=== PATIENT | female | born 1990 | race Caucasian/White ===

== ENCOUNTER 2023-10-26 09:22 | Outpatient (CLI) | payer BC, SELFPAY | END 2023-10-26 09:23 | disposition home or self-care (01) | LOC: NFLDREF 09:23 | PROVIDERS: PCP Registered Nurse; Visit Provider Registered Nurse | DX: Z34.81 Encounter for supervision of other normal pregnancy, first trimester (principal) | CPT/HCPCS: 86787 ==

== ENCOUNTER 2023-12-11 13:49 | Outpatient (CLI) | payer BC, SELFPAY ==
--- NOTE | 2023-12-11 14:00 | CRLHL7_ITS ---
For Patients: As a result of the Century Cures Act, medical imaging exams and procedure reports are released immediately into your electronic medical record. You may view this report before your referring provider. If you have questions, please contact your health care provider. INDICATION: Evaluate anatomy. COMPARISON: none TECHNIQUE: Real time lazaro scale imaging of the fetus was performed as well as color Doppler analysis of the umbilical vessels. FINDINGS: Sonographic imaging demonstrates a single living intrauterine gestation. Fetus demonstrates a regular cardiac rate of 163 beats per minute. Fetus has a variable position. The placenta lies posteriorly without evidence of placenta previa. Placental edge is 3.5 cm from the internal cervical os. Amniotic fluid volume appears normal. Single deepest vertical pocket: 4.4 cm. The cervix is closed and measures 4.2 cm in length. The composite ultrasound gestational age is calculated at 19 weeks 1 day with an estimated sonographic due date of 05/05/2024. The estimated weight is 283 grams which lies at the 62nd %. The following biometric measurements were obtained: Biparietal diameter: 4.4 cm/19 weeks 2 days 63rd% Head circumference: 16.0 cm/18 weeks 6 days 34th% Abdominal circumference: 13.8 cm/19 weeks 2 days 53rd% Femur length: 3.1 cm/19 weeks 3 days 60th% The HC/AC ratio measures: 1.16 range (1.09-1.26) On anatomic survey, there is a normal appearance of the cerebral ventricles, cavum septi pellucidi, cisterna magna and cerebellum. The nose, lips, and facial profile appear normal. The cervical, thoracic and lumbar spine are well visualized and appear normal. There is a normal four-chamber heart view and the left and right ventricular outflow tracts appear normal. The diaphragm and stomach appear normal. The kidneys and bladder also appear normal. There is a normal three-vessel cord and cord insertion site. The four extremities appear normal. IMPRESSION: Normal OB ultrasound exam with concordance of clinical and sonographic dating. No intrinsic abnormalities noted on anatomic survey. Dictated by Lenin Thompson MD @ 12/13/2023 7:06:56 AM (Electronically Signed)
== END 2023-12-11 13:50 | disposition home or self-care (01) ==
LOC: US 13:50
PROVIDERS: Visit Provider Advanced Practice Midwife
DX: Z34.92 Encounter for supervision of normal pregnancy, unspecified, second trimester (principal); Z3A.19 19 weeks gestation of pregnancy
CPT/HCPCS: 76805

== ENCOUNTER 2024-02-07 11:27 | Outpatient (CLI) | payer BC, SELFPAY | END 2024-02-07 11:28 | disposition home or self-care (01) | PROVIDERS: Visit Provider Advanced Practice Midwife | DX: Z34.83 Encounter for supervision of other normal pregnancy, third trimester (principal); Z67.11 Type A blood, Rh negative | CPT/HCPCS: 86592; 86850; J2791 ==

== ENCOUNTER 2024-02-12 14:07 | Outpatient (CLI) | payer BC, SELFPAY ==
[2024-02-12 14:20] VITALS: PULSE 105; O2SAT 96
[2024-02-12 14:23] VITALS: BP 111/68; PULSE 103; PULSE 106; O2SAT 93
[2024-02-12 14:25] VITALS: PULSE 107; O2SAT 96
[2024-02-12 14:41] LABS: Appearance Urine Slightly Cloudy (Clear); Bilirubin Urine Negative (Negative); Blood Urine Negative (Negative); Color Urine Dark yellow (Yellow); Glucose Urine Negative (Negative); Ketones Urine Negative (Negative); Leukocyte Esterase Urine Negative (Negative); Nitrite Urine Negative (Negative); Protein Urine 1+ (Negative); Urobilinogen Urine 0.2 (0.2-1.0)
[2024-02-12 15:09] LABS: RBC Urine 0-2 (0-2)
[2024-02-12 15:09] LABS: Clue Cells No Clue Cells Seen (None Seen); Trichomonas No Trichomonas Seen (None Seen); Yeast No Yeast Seen (None Seen)
[2024-02-12 15:10] LABS: Bacteria Urine Moderate; Squamous Epithelial Cell Urine Moderate (None-Few)
--- NOTE | 2024-02-12 16:25 | PC.OBNST ---
NST Note NST Note Start: 02/12/24 14:12 Freq: ONCE Status: Active Protocol: Document 02/12/24 16:24 THEODORE (Rec: 02/12/24 16:25 THEODORE Desktop) NST Note 3 Para (# of births) 1 EDC 05/06/24 Gestational Age In Weeks & Days 28 Weeks & 0 Days Patient Presented with Complaint(s) of Pain Other Complaints lower abdominal pain Reactive Yes Appropriate for Gestational Age Yes NADINE Aranda RN Date 02/12/24 Reactive Yes Appropriate for Gestational Age Yes NADINE Camara RN Date 02/12/24 OB NST charge Yes Complete NST Note via Write Note Yes The provider's electronic signature indicates the NST is reactive/appropriate for gestational age. *Note to provider: If an addendum is required, open the patient's chart and click on the note under the Nurse/Allied Health tab.
== END 2024-02-12 16:10 | disposition home or self-care (01) ==
LOC: OB OUT 14:07 → OB 14:07
PROVIDERS: Visit Provider Advanced Practice Midwife
DX: O26.893 Other specified pregnancy related conditions, third trimester (principal); R10.9 Unspecified abdominal pain; Z3A.28 28 weeks gestation of pregnancy
CPT/HCPCS: 59025; 81001; 81003; 87086; 87210; G0463

== ENCOUNTER 2024-04-08 09:12 | Outpatient (CLI) | payer BC, SELFPAY | END 2024-04-08 09:13 | disposition home or self-care (01) | LOC: NFLDREF 04-09 12:08 | PROVIDERS: Visit Provider Obstetrics & Gynecology | DX: Z34.93 Encounter for supervision of normal pregnancy, unspecified, third trimester (principal); Z3A.36 36 weeks gestation of pregnancy | CPT/HCPCS: 87081; 87653 ==

== ENCOUNTER 2024-12-25 09:05 | Outpatient (CLI) | payer BC, SELFPAY | END 2024-12-25 09:06 | disposition home or self-care (01) | LOC: LKVREF 09:06 | PROVIDERS: Visit Provider Obstetrics & Gynecology | DX: Z32.01 Encounter for pregnancy test, result positive (principal) | CPT/HCPCS: 84702 ==

== ENCOUNTER 2024-12-27 09:58 | Outpatient (CLI) | payer BC, SELFPAY ==
[2024-12-27 10:45] LABS: HCG Quantitative* 127.59 mIU/mL
== END 2024-12-27 09:59 | disposition home or self-care (01) ==
LOC: NPLBCLIENT 09:58
PROVIDERS: Visit Provider Obstetrics & Gynecology
DX: O20.9 Hemorrhage in early pregnancy, unspecified (principal)
CPT/HCPCS: 36415; 84702

== ENCOUNTER 2025-02-03 12:52 | Outpatient (CLI) | payer BC, SELFPAY ==
--- NOTE | 2025-02-03 13:00 | CRLHL7_ITS ---
For Patients: As a result of the Cures Act, medical imaging exams and procedure reports are released immediately into your electronic medical record. You may view this report before your referring provider. If you have questions, please contact your health care provider. OB ULTRASOUND INDICATION: Dating and viability. TECHNIQUE: Real time grayscale imaging of the fetus was performed. Transvaginal. Transvaginal imaging performed to better demonstrate the endometrium and ovaries. LMP: Unknown. Previous US: No. TWIN A: CRL: 2.8 cm. 9 w 4 d. ANDRY: 09/04/2025. FHR: 178 BPM. Gestational sac: 5.5 cm. Appears within normal limits. Yolk sac: 5.2 mm. Appears within normal limits. TWIN B: CRL: 2.7 cm. 9 w 3 d. ANDRY: 09/05/2025. FHR: 179 BPM. Gestational sac: 5.5 cm. Appears within normal limits. Yolk sac: 5.2 mm. Appears within normal limits. [place]/Di Right ovary: N/V. Left ovary: 3.6 x 2.0 x 2.6 cm. CL. IMPRESSION: 1. Monochorionic-Diamniotic gestation. 2. Twin A: Sonographic gestational age 9 weeks 4 days with sonographic due date 09/04/2025. 3. Twin B: Sonographic gestational age 9 weeks 3 days with sonographic due date 09/05/2025. Lenin Thompson M.D. Diagnostic Radiologist [email or web address] MAHAD/devyn shepard/Dictated by: Lenin Thompson MD @ 02/03/2025 3:54:00 PM (Electronically Signed)
== END 2025-02-03 12:53 | disposition home or self-care (01) ==
LOC: US 12:52
PROVIDERS: Visit Provider Registered Nurse
DX: O30.041 Twin pregnancy, dichorionic/diamniotic, first trimester (principal); Z3A.09 9 weeks gestation of pregnancy; Z34.90 Encounter for supervision of normal pregnancy, unspecified, unspecified trimester
CPT/HCPCS: 76801; 76817; 83021; 86592; 86703; 86704; 86706; 86762; 86787; 86803; 86850; 86900; 86901; 87086; 87340; 87491; 87591

== ENCOUNTER 2025-02-03 14:28 | Outpatient (CLI) | payer BC, SELFPAY ==
[2025-02-03 18:27] LABS: Chlamydia DNA Amplified* NOT DETECTED (No Detected); GC DNA Amplified* NOT DETECTED (No Detected)
== END 2025-02-03 14:29 | disposition home or self-care (01) ==
PROVIDERS: Visit Provider Registered Nurse
DX: Z34.90 Encounter for supervision of normal pregnancy, unspecified, unspecified trimester (principal)
CPT/HCPCS: 83020; 83021; 85660; 86592; 86703; 86704; 86706; 86762; 86787; 86803; 86850; 86900; 86901; 87086; 87340; 87491; 87591

== ENCOUNTER 2025-02-10 07:17 | Emergency (ER) | payer BC, SELFPAY ==
[2025-02-10] VITALS (9 sets, daily range): BP systolic 111–113; BP diastolic 69–79; PULSE 83–100; RESP 16; TEMP 36.6; O2SAT 97–100; BMI 29.9
--- OUTSIDE RECORDS SUMMARY | 2025-02-10 07:21 | XMS_ITS | Clinical Summary ---
Author Organization [employer] [facility] Address [address] [place] [id number] Care Team Providers Care Tightening Machine Operator Name Role Phone Pcp, No Primary Care Provider Unavailabl e Allergies Active Allergy Reactions Criticality Noted Date Comments Amoxicillin *Unknown 01/06/2011 Rash as a child Blood-Group Specific Substance *Unknown 04/20/2024 Patient has Probable Passive D antibody. Blood products may be delayed. Draw patient 24 hours prior to transfusion. For [employer] testing, draw one red top and two purple top tubes for all Type and Screen orders. Cefprozil *Unknown 01/06/2011 Rash as a child Medications albuterol HFA (PRO-AIR; VENTOLIN; PROVENTIL) 90 mcg/actuation inhaler Inhale 2 Puffs by mouth. 10/03/2023 Active vit/iron fum/folic ac ( 1 + 1 ORAL) Take by mouth. Active cholecalciferol , vitamin D3, (VITAMIN D3 ORAL) Take by mouth. Active fluconazole (Diflucan) 200 mg tabletIndicatio ns:Yeast infection of nipple, (HC) Take 1 Tablet (200 mg) by mouth once daily. Take 400mg (2 tabs) the first day by mouth, followed by 200mg (1 tab) daily for 14 days. 16 Tablet 05/26/2024 Active Active Problems Problem Noted Date Diagnosed Date Amniotic fluid leaking 04/20/2024 History of delivery by vacuu m extraction, currently in third trimester 04/20/2024 Rh negative status during 04/20/2024 (spontaneous vaginal delivery) 04/20/2024 Type 3a perineal laceration during delivery 12/2023 Alcohol dependence in remission 06/14/2021 Bipolar 2 disorder 05/01/2021 JERICHO (generalized anxiety disorder) 03/30/2021 Anxiety 10/18/2020 Intermittent asthma without complication 020 ADHD (attention deficit hype ractivity disorder), inattentive type 05/04/2015 Major depressive disorder, recurrent episode, mo derate 10/15/2013 Panic disorder without agoraphobia 12/11/2012 Comments Yes Encounters Date Type Department Care Team Description 12/30/2024 6:55 PM CDT Office Visit [facility] [address] [facility] [address] [place] [address] Yasmine Ruiz PA Cr[employer] 12/30/2024 Travel from Last 3 Months Immunizations Immunization Administration Dates Next Due DTP 1991 DTaP 09/30/1996,05/17/1993 HIB PRP-T (ActHIB,Hiberix) 1991 HIB-HepB (Comvax) 09/30/1996,05/17/1993,06/17/18 92 HPV 9 (Gardasil 9) 04/19/2009,11/21/2007, 008 Hepatitis A (Peds) 04/19/2009,07/31/2007, 004 Hepatitis A, Unspecified 04/19/2009,07/31/2007,0 05/26/2003 Hepatitis B (Peds) 09/28/1994,05/09/1994, 994 Hepatitis B, Unspecified 09/28/1994,05/09/1994,1 06/03/1993 Hib Conjugate, Unspecified 1991 Human Papilloma Virus Vaccine 04/19/2009, 008,07/31/2007 Inactivated Polio Vaccine 05/17/1993,1991 Influenza A (H1N1), Inactivated 04/19/2009 Influenza, IIV3 (Age >=3 years) 05/04/20 15,02/12/2012,04/11/2008,04/13 Influenza, IIV4 01/27/2016 Influenza,LAIV3 Live Intrana rainer (Flumist) 01/19/2009 MMR 12/03/1998 Meningococcal Vaccine (Menomune) 07/31/2007 Oral Polio Vaccine 05/17/1993,1991 Td (Age >=7 Years) 12/22/2003 Tdap 06/01/2022,12/11/2011,12/22/2003 Tuberculin (PPD) 11/21/2017 Varicella Vaccine 07/31/2007,10/05/1994 Family History Medical History Relation Name Comments Good Health Father Good Health Mother Relation Name Status Comments Father Mother Social History Tobacco Use Types Packs/Day Years Used Date Smoking Tobacco: Former Cigarettes Smokeless Tobacco: Never Tobacco Cessation:Counseling Given: Not Answered Alcohol Use Standard Drinks/Week Comments Not Currently 0 (1 standard drink = 0.6 oz pur e alcohol) PHQ-2 Answer Date Recorded PHQ-2 TOTAL SCORE 0 05/28/2024 Social Connections Answer Date Recorded Do you often feel lonely or isolated from those around you? 0 04/20/2024 Financial Resource Strain Answer Date R ecorded Difficulty of Paying Living Expenses 3 04/20/2024 Difficulty of Paying Living Expenses Not on file 04/20/2024 Food Insecurity Answer Date Recorded Do you worry your food will run out before you are able to buy more? 1 04/20/2024 Transportation Needs Answer Date Record ed Does lack of transportation keep you from medica l appointments? 1 04/20/2024 Does lack of transportation keep you from work, meetings or getting things that you need? 1 04/20/2024 Housing Stability Answer Date Recorded What is your housing situation today? 1 04/20/2024 Interpersonal Safety Answer Date Record ed Are you being hit, kicked, p ushed or yelled at (see row info)? No 04/21/2024 Interpersonal Safety Abuse 12 - 18 Not on file 04/21/2024 Interpersonal Safety Ambulatory Vulnerability No t on file 04/21/2024 Utilities Answer Date Recorded Do you have trouble paying f or utilities (for example, heat, electricity, water, phone)? 1 04/20/2024 Comments Yes Sex and Gender Information Value Date Recorded Sex Assigned at Not on file Legal Sex Female 8:37 AM MANUFACTURING TECHNOLOGY ANALYST Gender Identity Not on file Sexual Orientation Not on file Obstetrics History Para Term AB IAB SAB Ectopic Multiple Livin g Live Births 4 2 2 1 1 0 2 2 Date Outcome GA Total Labor Labor/2nd/3rd Weight Sex Type Anes PTL Viktoriya A1 A5 Name Clin 2011 Term 38w 5d 8h 05m/3h 45m/0h 04m 3.46 kg (7 lb 10 oz) F Vag-Va cuum Epidur al N Livin g 8 9 JADON ,G1 CORNELIUS brian Hugo villa MD Delivery Location:[facility] 2023 Term 37w 5d 0h 04m 0h 04m 2.84 kg (6 lb 4.2 oz) F VAGINA L SURENDRA None Livin g 8 9 Ladan a Trini Méndez n, Willi n Brandon whittington MD Complications:None Delivery Location:Hospital ( [facility] ) Current Last Filed Vital Signs Vital Sign Reading Time Taken Comments Blood Pressure 136/91 12/30/2024 7:02 PM CDT Pulse 91 12/30/2024 7:02 PM CDT Temperature 36.2 C (97.2 F) 12/30/2024 7:02 PM CDT Respiratory Rate 18 12/30/2024 7:02 PM CDT Oxygen Saturation 99% 12/30/2024 7:02 PM CDT Inhaled Oxygen Concentration - - Weight 82.3 kg (181 lb 8 oz) 05/28/2024 9:01 AM MANUFACTURING TECHNOLOGY ANALYST Height 170.2 cm (5' 7) 05/28/2024 9:01 AM MANUFACTURING TECHNOLOGY ANALYST Body Mass Index 28.43 05/28/2024 9:01 AM MANUFACTURING TECHNOLOGY ANALYST Plan of Treatment Health Maintenance Due Date Last Done Comments Hepatitis C screening for ag e 18-79 2009 Pneumococcal series for age 6-49 (1 of 2 - PCV) 2010 COVID-19 vaccine series (2 - season) 2025 04/01/2021 Influenza Vaccine (#1) 2025 6, 05/04/2015, 02/12/2012, Additional history exists BMI (ht and wt on same day) for age 18+ 05/28/2025 05/28/2024, 01/05/2023 Depression screening for age 12+ 05/28/2025 05/28/2024, 05/26/2024, 01/05/2023 Pap test for age 21-65 06/01/2025 (Verified in Care Everywhere or Patient Record) Tetanus booster 06/01/2032 06/01/2022, 11/13, 12/22/2003, Additional history exists RSV vaccine for adults or (1 - 1-dose 75+ series) 2066 Hepatitis B series for 19+ Completed 09/30, 09/28/1994, 09/28/1994, Additional history exists HPV series for age 9-45 Completed 04/19/20 09, 04/19/2009, 11/21/2007, Additional history exists HIV for age 15-65 Completed 10/11/2023 Procedures Procedure Name Priority Date/Time Associated Diagnosis Comments TRICHOMONAS, MARK, AND BACTERIAL VAGINOSIS BY CELESTE Routine 12/30/2024 7:27 PM CDT Urinary symptom or sign URINE CULTURE Routine 12/30/2024 7:09 PM CDT Urinary symptom or sign UA W/ SEDIMENT EXAM REFLEXED PER CRITERIA Routine 12/30/2024 7:09 PM CDT Urinary symptom or sign HIV EXTERNAL Routine 10/11/2023 from Last 3 Months or Most Recently Relevant to Health Maintenance Results * TRICHOMONAS, MARK, AND BACTERIAL VAGINOSIS BY CELESTE (12/30/2024 7:27 PM CDT) MARK SPECIES Negative Negative 10:27 AM CDT [facility] MARK GLABRATA Negative Negative 12/31/2024 10:27 AM CDT [facility] TRICHOMONAS VVA Negative Negative 10:27 AM CDT [facility] BACTERIAL VAGINOSIS Negative Negative 12/31/2024 10:27 AM CDT [facility] Other VAGINAL SWAB / Unknown Non-Blood / Unknown 12/30/2024 7:27 PM CDT 12/30/2024 7:33 PM CDT us Yasmine Diandra Roers PA MICROBIOLOGY Final Resu lt Performing Organization Address City/[facility]/ZIP Co de Phone Number [facility] [address] [place] [address], [place] * URINE CULTURE [19910.2] - routine (12/30/2024 7:09 PM CDT) CULTURE <10,000 CFU/mL multiple organisms 01/01/2025 10:45 AM CDT [facility] Urine URINE SPECIMEN / Unknown Non-Blood / Unknown 12/30/2024 7:09 PM CDT 12/30/2024 7:09 PM CDT Yasmine DOE MICROBIOLOGY Final Resu lt Performing Organization Address [facility]/ZIP Co de Phone Number [facility] [address] [place] [address], [place] * (ABNORMAL) UA W/ SEDIMENT EXAM REFLEXED PER CRITERIA [31758.2] (12/30/2024 7:09 PM CDT) COLOR YELLOW YELLOW 12/30/2024 7:16 PM CDT [facility] SPECIFIC GRAVITY > OR = 1.030 1.001 - 1.035 12/30/2024 7:16 PM CDT [facility] PH 5.5 5.0 - 8.0 12/30/2024 7:16 PM CDT [facility] PROTEIN NEGATIVE NEGATIVE 12/30/2024 7:16 PM CDT [facility] GLUCOSE NEGATIVE NEGATIVE 12/30/2024 7:16 PM CDT [facility] KETONES NEGATIVE NEGATIVE 12/30/2024 7:16 PM CDT [facility] BILIRUBIN NEGATIVE NEGATIVE 12/30/2024 7:16 PM CDT [facility] OCCULT BLOOD 1+(A) NEGATIVE 12/30/2024 7:16 PM CDT [facility] NITRITE NEGATIVE NEGATIVE 12/30/2024 7:16 PM CDT [facility] LEUKOCYTE ESTERASE NEGATIVE NEGATIVE 12/30/2024 7:16 PM CDT [facility] APPEARANCE CLEAR CLEAR 12/30/2024 7:16 PM CDT [facility] WBC UA 0-5 < OR = 5 /HPF 12/30/2024 7:16 PM CDT [facility] RBC UA 0-2 < OR = 2 /HPF 12/30/2024 7:16 PM CDT [facility] SQUAMOUS EPITHELIAL CELLS UA 0-5 < OR = 5 /HPF 12/30/2024 7:16 PM CDT [facility] BACTERIA UA MODERATE(A) NONE SEEN /HPF 12/30/2024 7:16 PM CDT [facility] COMMENTS UA MODERATE MUCOUS THREADS 12/30/2024 7:16 PM CDT [facility] NOTE UA SEE NOTE 12/30/2024 7:16 PM CDT [facility] Comment: This urine was analyzed for the presence of WBC, RBC, bacteria, casts, and other formed elements. Only those elements seen were reported. Urine URINE SPECIMEN / Unknown Non-Blood / Unknown 12/30/2024 7:09 PM CDT 12/30/2024 7:09 PM CDT us Yasmine Ruiz PA URINE Final Resu lt [facility] [id number] [place] [address], [place] [phone] [facility] [address] [place] [address], [place] * HIV EXTERNAL (10/11/2023) EXTERNAL HIV Negative OTHER-N OT LISTED-ADD NARRATIVE DETAILS Blood BLOOD SPECIMEN / Unknown us Other Clinical Staff LABORATORY Final Resul t OTHER-NOT LISTED-ADD NARRATIVE DETAILS from Last 3 Months or Most Recently Relevant to Health Maintenance Insurance [employer] Advance Directives * Full Code (Latest Code Status on File) Date Activated Date Inactivated Comments 04/20/2024 2:09 AM 04/21/2024 4:37 PM Question Answer Comments Code Status Discussion: Reviewed Preferences Care Teams Tightening Machine Operator Relationship Specialty Start Date End Date Pcp, No . PCP - General 12/12/22
--- OUTSIDE RECORDS SUMMARY | 2025-02-10 07:21 | XMS_ITS | Encounter Summary ---
Author Organization [facility] Address [address] [place] [address] Care Team Providers Care Pet Sitter Name Role Phone No Primary/Referring, Phy Primary Care Provider Unavailable Encounter Details Date Type Department Care Team (Latest Contact Info) Description 11/30/2016 Correspondence TMD at [address] [address] Jo-Ann Cerda, [place], [place] [address] [place] [address] [address] FLAT PLANE SPLINT ORDER Social History Tobacco Use Types Packs/Day Years Used Date Smoking Tobacco: Never Comments No Sex and Gender Information Value Date Recorded Sex Assigned at Not on file Legal Sex Female 5:34 AM CDT Gender Identity Not on file Sexual Orientation Not on file documented as of this encounter Plan of Treatment Not on file documented as of this encounter Visit Diagnoses Not on filedocumented in this encounter Care Teams Pet Sitter Relationship Specialty Start Date End Date No Primary/Referring, Aubrey PCP - General 12/13/16 documented as of this encounter
--- OUTSIDE RECORDS SUMMARY | 2025-02-10 07:21 | XMS_ITS | Encounter Summary ---
Author Organization [facility] Address [address] [place] [address] Care Team Providers Care Children'S Book Author Name Role Phone No Primary/Referring, Phy Primary Care Provider Unavailable Encounter Details Date Type Department Care Team (Late st Contact Info) Description 11/30/2016 Correspondence None No Primary/Referring, Phy TMD PRE-SERVICE NOTICE PAW Social History Tobacco Use Types Packs/Day Years [...] on filedocumented in this encounter Care Teams Children'S Book Author Relationship Specialty Start Date End Date No Primary/Referring, Phy PCP - General 12/13/16 documented as of this encounter
--- OUTSIDE RECORDS SUMMARY | 2025-02-10 07:21 | XMS_ITS | Encounter Summary ---
Author Organization [facility] Address [address] [place] [address] Care Team Providers Care Lehr Attendant Name Role Phone Radha Antony MD Primary Care P rovider Ramona Arguello MD Primary Care Provider + [phone] GavinLori hagan NP Unavailable [phone] Ramona Arguello MD Unavailable [phone] Ramona Arguello MD Unavailable [phone] Meagan Pelaez MD Unavailable [phone] Ramona Arguello MD Unavailable [phone] Jovani Watts MD Primary Care Provid er Jovani Watts MD Unavailable + [phone] Barbara Rapp MD Unavailable Beena Jimenez MD Unavailable Unavailable Christine Cagle ABRASIVE GRADER Unavailable Brionna Naik APRN TURBINE INSPECTOR Unavailable No Ref-Primary, Physician Primary Care Provider Celeste Gordon PA-C Unavailable Jessica Farmer MD Unavailable Encounter Details Date Type Department Care Team (Late st Contact Info) Description 10/31/2010 Office Visit-[facility] [address] [place] [address] Unknown, Doctor, Social History Tobacco Use Types Packs/Day Years Used Date Smoking Tobacco: Never Assessed Comments Unknown Sex and Gender Information Value Date Recorded Sex Assigned at Female 06/01/2022 11:23 AM MANUFACTURING PRODUCTION MANAGER Legal Sex Female 3:40 AM MANUFACTURING PRODUCTION MANAGER Gender Identity Female 09/29/2020 7:32 PM CDT Sexual Orientation Straight 09/29/2020 7: 32 PM CDT documented as of this encounter Progress Notes * Unknown, DoctorMD - 12/04/2010 2:02 PM CDT Progress Note Created by: Janak Lambert M.D. DATE: 10/27/2010 CORNELIUS MENDEZ DATE OF : 1990 AGE: [age] years old Referring Physician: MERCEDEZ GARCIA CURRENT DIAGNOSES 1. - Tachycardia, 785.0 2. Syncope, 780.2 ALLERGIES Amoxicillin Trihydrate Cefprozil MEDICATIONS (prior to changes made today) 1. Celexa 20 mg Tablet, 1 p.o. daily CHIEF COMPLAINTS HISTORY OF PRESENT ILLNESS It is my pleasure to see your patient, Cornelius Mendez, who is a 20-year-old female patient who was in the emergency room approximately a week ago. At that particular time she got up to let her dog out, she was walking around and then she became light-headed and dizzy and she felt that she was going tofaint. She felt that her vision was going. She had the feeling that one gets when one stands up tooquickly. The symptoms, however, did not go away and she was worried about what to do and she started to call her boyfriend and then she noticed that her heart started beating rapidly. What is important to note is that she felt the light-headedness and dizziness first. Then afterwards she noticed that her heart was beating rapidly. She was not feeling extra heartbeats she was feeling tachycardia. She was also feeling numb around her mouth and some tingling in her hands. She started to feel somewhat short of breath and was breathing rapidly. When she could not get a hold of her boyfriend she then called 911. She was brought to the emergency room. When she was feeling tachycardiac they performed an EKG and according to the emergency room doctor what she was having was sinus tachycardia with occasional premature atrial contractions. Gradually the symptoms went away. Her electrolytes were normal she had a borderline low serum calcium at 8.6. Her potassium was normal at 3.9. She has been seen by my partner Dr. Derek Morrissey here recently. She noticed that she was having episodes of palpitations and near fainting and racing heartbeat with blurry vision every time she tried toexercise and she was very much into sport doing volleyball and doing lacrosse and essentially she has given up those because of these symptoms of near-syncope. She does drink a lot of caffeine she told me. She has had no chest pains or chest pressure. PAST HISTORY Past Medical Illnesses: ADHD Past Cardiac Illnesses: tachycardia, palpitations Cardiology Procedures-NonInvasive: CXR 07/20 FAMILY HISTORY: Father - alive and well; Mother - hypercholesterolemia; CARDIAC RISK FACTORS SOCIAL HISTORY Alcohol Use - does not use alcohol; Smoking - does not smoke; Diet - caffeine use-1-2 per day; Lifestyle - single; Exercise - exercises daily and gym; Occupation - student; Residence - lives with parents; REVIEW OF SYSTEMS GENERAL possible panic attack INTEGUMENTARY denies any change in hair or nails, rashes, or skin lesions. EYES denies diplopia, history of glaucoma or visual field defects. EARS, NOSE, THROAT, MOUTH denies any hearing loss, epistaxis, hoarseness or difficulty speaking. RESPIRATORY dyspnea, with episode CARDIOVASCULAR flush in the chest, dizziness, heart racing and irregular beat, occur ABDOMINAL denies ulcer disease, hematochezia or melena. MUSCULOSKELETAL denies any history of arthritic symptoms or back problems. NEUROLOGICAL denies any history of recurrent strokes, headaches, TIA, or seizure disorder. PSYCHIATRIC denies any history of depression, substance abuse or change in cognitive functions. ENDOCRINE denies any history of thyroid disease or diabetes mellitus. HEMATOLOGICAL/IMMUNOLOGIC denies any food allergies, seasonal allergies, bleeding disorders. PHYSICAL EXAMINATION VITAL SIGNS: Blood Pressure: 100/60Sitting, Left arm, regular cuff Pulse- 80.00/min. Weight- 133.00 lbs. Height- 67.00 Temperature- .00 CONSTITUTIONAL cooperative, alert and oriented,well developed, well nourished, in no acute distress. SKIN warm and dry to touch HEAD normocephalic, atraumatic EYES Pupils equal and round, conjunctivae and lids unremarkable, sclera white, no xanthalasma ENT no pallor or cyanosis, dentition good NECK carotid pulses are full and equal bilaterally, JVP normal, no carotid bruit, no thyromegaly CHEST normal symmetry, no tenderness to palpation, normal respiratory excursion, no intercostal retraction, no use of accessory muscles, clear to auscultation and percussion. CARDIAC regular rhythm, S1 normal, S2 normal, No S3 or S4, Apical impulse not displaced, no murmurs, gallops or rubs detected. ABDOMEN abdomen unremarkable PERIPHERAL PULSES pulses full and equal in all extremities, no bruits auscultated. EXTREMITIES & BACK no clubbing, cyanosis or edema PSYCHIATRIC no difficulties with speech or language NEUROLOGICAL normal gait and stance MEDICATIONS UPDATED/STARTED TODAY: Celexa 20 mg Tablet, 1 p.o. daily, #0 MEDICATIONS REFILLED/STOPPED TODAY: Adderall XR 20 mg Capsule, Sust. Release 24 hr 1 p.o. daily #-1 Physician Order IMPRESSIONS/PLAN 1. The episode that she had approximately a week ago sounds very much like a panic attack in that she had perioral paresthesia and tingling. When she was in the rhythm she was in sinus tachycardia with some PACs and PACs alone would be insufficient to cause these symptoms. Certainly it does not appear that she was in an SVT or VT when she had this episode. However, the other episodes are somewhatworrisome too as well in that she would exercise and then feel syncopal or near-syncopal. She has been investigated in the past by pediatric cardiology but event monitors never caught the dysrhythmia. PLAN: 1. I think the first thing we need to determine is if the patient has a structurally normal heart so an echocardiogram will be very important. 2. The second thing is that she does have exercise induced symptoms, at least she did this time last year, and we need to see if she develops any rhythm abnormalities when she exercises. 3. I will see her back again with the results of these tests. It is certainly a pleasure being involved in the care of this very nice patient. TODAYS ORDERS 1. 2D, color flow, doppler 1 Day 2. Neil Treadmill 1 Day, Patient ON Medication 3. Return Visit 1 month Janak Lambert M.D. documented in this encounter Plan of Treatment Not on file documented as of this encounter Visit Diagnoses Not on filedocumented in this encounter Additional Health Concerns Infection Onset Date Last Indicated Resolved Time Rule Out COVID-19 03/02/2020 03/02/2020 03/02/2020 3:32 PM CDT Rule Out COVID-19 06/30/2023 06/30/2023 06/30/2023 3:44 PM MANUFACTURING PRODUCTION MANAGER documented as of this encounter Care Teams Lehr Attendant Relationship Specialty Start Date End Date Radha Antony MD [address] [place] [address] PCP - General Internal Medicine 01/09/11 02/11/12 Ramona Arguello MD [address] [place] [address] PCP - General Internal Medicine 02/12/12 09/28/20 Ramona Arguello MD [address] [place] [id number] PCP - Assigned PCP 02/11/17 07/16/18 Joavni Watts MD [address] [place] [address] PCP - General Internal Medicine 09/29/20 06/25/23 No Ref-Primary, Physician PCP - General 06/30/23 Lori Alonso NP [facility] [address] [place] [address] Nurse Practitioner Nurse Practitioner Psych/Mental Health 12/22/16 Ramona Arguello MD [address] [place] [address] [id number] Assigned PCP 02/11/17 08/09/19 Meagan Pelaez MD [address] [id number] Assigned PCP 08/10/19 10/11/19 Ramona Arguello MD [address] 125323 Assigned PCP 10/12/19 10/06/20 Jovani Watts MD [address] [place] [address] Assigned PCP 10/07/20 04/21/22 Barbara Rapp MD [address] [place] [address] [place] [address] Assigned Behavioral Health Provider 06/19/21 06/09/22 Beena Jimenez MD INACTIVE IN [place] 04/12/2024 Assigned PCP 04/22/22 06/16/22 Christine Cagle, ABRASIVE GRADER [address] [address] Assigned Behavioral Health Provider 06/10/22 12/15/22 Brionna Naik APRN TURBINE INSPECTOR [address] [place] [address]662 Assigned PCP 06/17/22 12/03/23 Celeste Gordon PA-C [address] [place] [address] Assigned PCP 12/04/23 04/04/24 Jessica Farmer MD [address] [place] [address] Assigned PCP 04/05/24 documented as of this encounter
--- OUTSIDE RECORDS SUMMARY | 2025-02-10 07:21 | XMS_ITS | Encounter Summary ---
Author Organization [facility] Address [address] [place] [address] Care Team Providers Care Transportation Operations Manager Name Role Phone Radha Antony MD Primary Care P rovider Ramona Arguello MD Primary Care Provider + [phone] GavinLori hagan NP Unavailable [phone] Ramona Arguello MD Unavailable [phone] Ramona Arguello MD Unavailable [phone] Meagan Pelaez MD Unavailable [phone] Ramona Arguello MD Unavailable [phone] Jovani Watts MD Primary Care Provid er Jovani Watts MD Unavailable + [phone] Barbara Rapp MD Unavailable Beena Jimenez MD Unavailable Unavailable Christine Cagle TRADING SPECIALIST Unavailable Brionna Naik APRN TRAFFIC LINE PAINTER Unavailable No Ref-Primary, Physician Primary Care Provider Celeste Gordon PA-C Unavailable Jessica Farmer MD Unavailable Encounter Details Date Type Department Care Team (Late st Contact Info) Description 07/26/2009 Office Visit-[facility] [place] [address] [facility] [address] [place] [address] Derek Morrissey MD [address] [facility] [address] [place] [address] Social History Tobacco Use Types Packs/Day Years Used Date Smoking Tobacco: Never Assessed Comments Unknown Sex and Gender Information Value Date Recorded Sex Assigned at Female 06/01/2022 11:23 AM MALLET CUTTER Legal Sex Female 3:40 AM MALLET CUTTER Gender Identity Female 09/29/2020 7:32 PM CDT Sexual Orientation Straight 09/29/2020 7: 32 PM CDT documented as of this encounter Progress Notes * Derek Morrissey MD - 07/28/2009 11:44 AM CDT Progress Note Created by: Derek Morrissey M.D. DATE: 07/26/2009 CORNELIUS DIOP DATE OF : 1990 AGE: [age] years old Referring Physician: MERCEDEZ GARCIA CURRENT DIAGNOSES 1. - Tachycardia, 785.0 ALLERGIES Amoxicillin Trihydrate Cefprozil MEDICATIONS (prior to changes made today) 1. Adderall XR 20 mg Capsule, Sust. Release 24 hr, 1 p.o. daily CHIEF COMPLAINTS Heart 'fluttering' and rapid,vision starts going black HISTORY OF PRESENT ILLNESS Thank you allowing me to participate in the care of this delightful patient. 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 The episodes are really triggered with exercise. She had to quit a few event sports because ofit. You have sent her to see a pediatric clinical dietician who recommended documentation of the palpations. Unfortunately, despite wearing a monitor for 30 days twice, the patient did not have any events.She describes these episodes as sudden onset of racing heartbeat along with blurry vision. It will go away after she sits down and relaxes after several minutes. It never occurs at rest. It is onlyinvolved with exercise where she would start running and then stop, but never if she went on a cross country that would require continuous running. Her family history is unremarkable for any premature coronary disease, syncope or near syncope. The patient denies any syncopal episodes. She also denies using any drugs. On examination in general the patient appeared quite healthy, accompanied by her mother. Her blood pressure is 110/90, heart rate 80. Her lungs were clear. Cardiovascular examination revealed normal S1, S2, no S3, no S4, was regular. Electrocardiograms reviewed by me demonstrated sinus rhythm without any ventricular preexcitation or long QT. PAST HISTORY Past Medical Illnesses: ADHD Past Cardiac Illnesses: tachycardia Cardiology Procedures-Noninvasive: CXR 07/20 SOCIAL HISTORY Alcohol Use - does not use alcohol; Smoking - does not smoke; Diet - caffeine use-1-2 per day; Lifestyle - single; Exercise - exercises daily and gym; Occupation - student; Residence - lives with parents; PHYSICAL EXAMINATION VITAL SIGNS: Blood Pressure: 110/90Sitting, Right arm, regular cuff Pulse- 80.00/min. Weight- 122.00 lbs. Height- 67.00 Temperature- .00 CONSTITUTIONAL cooperative, alert and oriented,well developed, well nourished, in no acute distress. SKIN warm and dry to touch HEAD normocephalic, atraumatic EYES Pupils equal and round, conjunctivae and lids unremarkable, sclera white, no xanthalasma ENT no pallor or cyanosis, dentition good NECK no JVD CHEST clear to auscultation CARDIAC normal 1st and 2nd heart sounds without murmur or gallop ABDOMEN abdomen unremarkable PERIPHERAL PULSES pulses full and equal in all extremities, no bruits auscultated. EXTREMITIES & BACK no clubbing, cyanosis or edema PSYCHIATRIC no difficulties with speech or language NEUROLOGICAL normal gait and stance MEDICATIONS UPDATED/STARTED TODAY: Adderall XR 20 mg Capsule, Sust. Release 24 hr, 1 p.o. daily, #-1 IMPRESSIONS/PLAN Cornelius is a delightful 19-year-old teenager who has been having palpations for the past four years. They appear to be some form of paroxysmal supraventricular tachycardia as this is the most common type. The ayala to document this, however, is not realistic to have the patient wear a monitor again as it is unpredictable when the next episode is going to come. Since this is triggered by exercise, I believe we should try to trigger it by having her run on the treadmill for us with a stop and go to mimic her episodes at home. Hopefully we can catch it. If we do not catch it, which is not a surprise, I would continue to monitor it. If it happens more frequently in the future one option is an Electrophysiology study where we can induce the rhythm to come out. Lastly, we discussed the prognosis of this presumed supraventricular tachycardia, which is quite benign and can remain stable with symptom control. Obviously if the tachycardia is quite fast the patient could have a syncopal episode and suffer an injury from it, but really the problem is quite benign. Thank you for allowing me to participate in the care of this delightful patient. TODAYS ORDERS 1. Manual Treadmill 1 Day , call Dr. Morrissey for protocol 2. Return Visit 1 year Derek Morrissey M.D. documented in this encounter Plan of Treatment Not on file documented as of this encounter Visit Diagnoses Not on filedocumented in this encounter Additional Health Concerns Infection Onset Date Last Indicated Resolved Time Rule Out COVID-19 03/02/2020 03/02/2020 03/02/2020 3:32 PM CDT Rule Out COVID-19 06/30/2023 06/30/2023 06/30/2023 3:44 PM MALLET CUTTER documented as of this encounter Care Teams Transportation Operations Manager Relationship Specialty Start Date End Date Radha Antony MD [address] [place] [address] PCP - General Internal Medicine 01/09/11 02/11/12 Ramona Arguello MD [address] [place] [address] PCP - General Internal Medicine 02/12/12 09/28/20 Ramona Arguello MD [address] [place] [address] [id number] PCP - Assigned PCP 02/11/17 07/16/18 Jovani Watts MD [address] [place] [address] PCP - General Internal Medicine 09/29/20 06/25/23 No Ref-Primary, Physician PCP - General 06/30/23 Lori Alonso NP [facility] [address] [place], [place] [address] Nurse Practitioner Nurse Practitioner Psych/Mental Health 12/22/16 Ramona Arguello MD [address] [place] [address] [id number] Assigned PCP 02/11/17 08/09/19 Meagan Pelaez MD [address] [facility] [address] [place], [place] 7[address] Assigned PCP 08/10/19 10/11/19 Ramona Arguello MD [address] [place] [address] Assigned PCP 10/12/19 10/06/20 Jovani Watts MD [address] [place] [address] Assigned PCP 10/07/20 04/21/22 Barbara Rapp MD [address] [facility] [address] Assigned Behavioral Health Provider 06/19/21 06/09/22 Beena Jimenez MD INACTIVE IN [place] 04/12/2024 Assigned PCP 04/22/22 06/16/22 Christine Cagle, TRADING SPECIALIST [address] [facility] [address] [place] [address] Assigned Behavioral Health Provider 06/10/22 12/15/22 Brionna Naik APRN TRAFFIC LINE PAINTER [address] [place], [place] [address] Assigned PCP 06/17/22 12/03/23 Celeste Gordon PA-C [address] [place] [address] Assigned PCP 12/04/23 04/04/24 Jessica Farmer MD [address] [place] [address] Assigned PCP 04/05/24 documented as of this encounter
--- OUTSIDE RECORDS SUMMARY | 2025-02-10 07:22 | XMS_ITS | Encounter Summary ---
Author Organization [facility] Address [address] [facility] [place] [address] Care Team Providers Care Fixed Wing Aircraft Crew Chief Name Role Phone Gavin Lori Arias NP Unavailable [phone] No Ref-Primary, Physician Primary Care Provider Jessica Farmer MD Unavailable Encounter Details Date Type Department Care Team (Late st Contact Info) Description 02/09/2025 Transcribe Orders [facility] [place] [address] [facility] [address] [place] [address] Edyta Abraham APRN [facility] [address] [place] [address] related condition, antepartum (Primary Dx) Social History Tobacco Use Types Packs/Day Years Used Date Smoking Tobacco: Former Cigarettes 0.5 13.3 S tarted: 11/05/2011 Smokeless Tobacco: Never Alcohol Use Standard Drinks/Week Comments Not Currently 0 (1 standard drink = 0.6 oz pur e alcohol) PHQ-2 Answer Date Recorded PHQ-2 Score 0 10/02/2023 Adolescent Education Answer Date Record ed Getting School Help Needed Not on file 02/02 Interpersonal Safety Answer Date Record ed Do you feel physically and e motionally safe where you currently live? Yes 10/02/2023 Within the past 12 months, h ave you been hit, slapped, kicked or otherwise physically hurt by someone? No 10/02/2023 Within the past 12 months, h ave you been humiliated or emotionally abused in other ways by your partner or ex-partner? No 10/02/2023 Comments Unknown Sex and Gender Information Value Date Recorded Sex Assigned at Female 06/01/2022 11:23 AM DEBT COUNSELOR Legal Sex Female 3:40 AM DEBT COUNSELOR Gender Identity Female 09/29/2020 7:32 PM CDT Sexual Orientation Straight 09/29/2020 7: 32 PM CDT documented as of this encounter Plan of Treatment Not on file documented as of this encounter Visit Diagnoses Diagnosis related condition, antepartum- Primary documented in this encounter Additional Health Concerns Assessment Noted Time PHQ-9 Depression Total Score: 2 10/02/19 1:36 PM CDT documented as of this encounter Care Teams Fixed Wing Aircraft Crew Chief Relationship Specialty Start Date End Date No Ref-Primary, Physician PCP - General 06/30/23 Lori Alonso NP [facility] [address] [place] [address] Nurse Practitioner Nurse Practitioner Psych/Mental Health 12/22/16 Jessica Farmer MD [address] [place] [address] Assigned PCP 04/05/24 documented as of this encounter
--- OUTSIDE RECORDS SUMMARY | 2025-02-10 07:22 | XMS_ITS | Encounter Summary ---
Author Organization [facility] Address [address] [place] [address] Care Team Providers Care Suction Plate Carrier Cleaner Name Role Phone Ramona Arguello MD Primary Care Provider + [phone] Lori Alonso NP Unavailable [phone] Ramona Arguello MD Unavailable [phone] Ramona Arguello MD Unavailable [phone] Meagan Pelaez MD Unavailable [phone] Ramona Arguello MD Unavailable [phone] Jovani Watts MD Primary Care Provid er Jovani Watts MD Unavailable + [phone] Barbara Rapp MD Unavailable Beena Jimenez MD Unavailable Unavailable Christine Cagle DIESEL MECHANIC CONSTRUCTION Unavailable Brionna Naik TURBINE ASSEMBLER ICE HANDLER Unavailable [phone] No Ref-Primary, Physician Primary Care Provider Celeste Gordon PAMorenaC Unavailable Jessica Farmer MD Unavailable Encounter Details Date Type Department Care Team (Latest Contact Info) Description 12/22/2016 Historic Results Social History Tobacco Use Types Packs/Day Years Used Date Smoking Tobacco: Some Days Smokeless Tobacco: Never Comments:2-3 cigs per day Alcohol Use Standard Drinks/Week Comments Yes 0 (1 standard drink = 0.6 oz pure alcohol) occasionally-less once per week Comments No Sex and Gender Information Value Date Recorded Sex Assigned at Female 06/01/2022 11:23 AM PATTERN STORAGE CLERK Legal Sex Female 3:40 AM PATTERN STORAGE CLERK Gender Identity Female 09/29/2020 7:32 PM CDT [...] Out COVID-19 06/30/2023 06/30/2023 06/30/2023 3:44 PM PATTERN STORAGE CLERK Assessment Noted Time PHQ-9 Depression Total Score: 16 017 1:22 PM CDT documented as of this encounter Care Teams Suction Plate Carrier Cleaner Relationship Specialty Start Date End Date Ramona Arguello MD PCP - General Internal Medicine 02/12/12 09/28/20 Ramona Arguello MD [facility] [address] [place] [address] PCP - Assigned PCP 02/11/17 07/16/18 Jovani Watts MD [address] [place], [place] [address] PCP - General Internal Medicine 09/29/20 06/25/23 No Ref-Primary, Physician PCP - General 06/30/23 Lori Alonso NP [facility] [address] [facility] [place] [place] [phone] Nurse Practitioner Nurse Practitioner Psych/Mental Health 12/22/16 Ramona Arguello MD [address] [place] [id number] Assigned PCP 02/11/17 08/09/19 Meagan Pelaez MD [address] [place] [address] [address] [place] [address] Assigned PCP 08/10/19 10/11/19 Ramona Arguello MD [address] [place] [address] Assigned PCP 10/12/19 10/06/20 Jovani Watts MD [address] [place] [address] Assigned PCP 10/07/20 04/21/22 Barbara Rapp MD [address] [place] [address] [place] [address] Assigned Behavioral Health Provider 06/19/21 06/09/22 Beena Jimenez MD INACTIVE IN [place] 04/12/2024 Assigned PCP 04/22/22 06/16/22 Christine Cagle, GABI [address] [facility] [address] [place] [address] Assigned Behavioral Health Provider 06/10/22 12/15/22 Brionna Naik APRN ICE HANDLER [address] [place] [address] Assigned PCP 06/17/22 12/03/23 Celeste Gordon PA-C [address] [place] [address] Assigned PCP 12/04/23 04/04/24 Jessica Farmer MD [address] [place] [address] Assigned PCP 04/05/24 documented as of this encounter
--- OUTSIDE RECORDS SUMMARY | 2025-02-10 07:22 | XMS_ITS | Encounter Summary ---
Author Organization [place] Address [address] [facility] [place] [address] Care Team Providers Care Hotel Maintenance Engineer Name Role Phone Lori Alonso NP Unavailable No Ref-Primary, Physician Primary Care Provider Jessica Farmer MD Unavailable Reason for Referral * Consultation (Routine: Next available opening) - Pending Review Specialty Diagnoses / Procedures Referred By Contfawn t Referred To Contact Diagnoses related condition, antepartum Edyta Abraham APRN [facility] [address] [place] [address] Phone: tel: fax: [facility] [place] [address] [place] [address] Phone: tel: fax: Referral ID Status Reason Start Date Expiration Date V isits Requested Visits Authorized [id number] Pending Review 02/09/2025 02/09/2026 1 1 Question Answer Preferred Location: [facility] - [place] Working Due Date: 09/04/2025 US Ordering Instructions: If US ONLY is requested, select appropriate US Order and DO NOT order [facility] Consult. Reason for Referral: Ultrasound Ultrasound - Includes Interpretation/Recommendations (*indicates inclusion of genetic counseling): Comprehensive US (>= 18w0d GA) - mono/di Indication (* indicates inclusion of genetic counseling): Other (enter details in Comments) - early FAS/ level 2 @ 16 weeks Fax number results need to be sent to: TIFFANIE Thorne+Trina, Comments There is no height or weight on file to calculate BMI. >> Patient may proceed with recommendations for further testing as directed by the Maternal Medicine Specialist >> >> If requesting Echo: MFM will determine appropriate location for exam due to indication. Please be aware that coverage of these services is subject to the terms and limitations of your health insurance plan. Call member services at your health plan with any benefit or coverage questions. Encounter Details Date Type Department Care Team (Late st Contact Info) Description 02/09/2025 Transcribe Orders [facility] [place] [address] [place] [address] Edyta Abraham APRN WASH TEST CHECK[facility] [address] [place] [address] related condition, antepartum (Primary Dx) Social History [...] Sex Assigned at Female 06/01/2022 11:23 AM PRIMARY CARE NURSE Legal Sex Female 3:40 AM PRIMARY CARE NURSE Gender Identity Female 09/29/2020 7:32 PM CDT Sexual Orientation Straight 09/29/2020 7: 32 PM CDT documented as of this encounter Plan of Treatment Scheduled Referrals Name Type Priority Associated Diagnoses Orde r Schedule Mat Med Ctr Referral - Referral Routine: Next available opening related condition, antepartum Expected: 02/09/2025 (Approximate), Expires: 08/08/2025 documented as of this encounter Visit Diagnoses Diagnosis related condition, antepartum- Primary documented in this encounter Additional Health Concerns Assessment Noted Time PHQ-9 Depression Total Score: 2 10/02/19 1:36 PM CDT documented as of this encounter Care Teams Hotel Maintenance Engineer Relationship Specialty Start Date End Date No Ref-Primary, Physician PCP - General 06/30/23 Lori Alonso NP [place] [address] [place] [address] Nurse Practitioner Nurse Practitioner Psych/Mental Health 12/22/16 Jessica Farmer MD [address] [place], [place] [address] Assigned PCP 04/05/24 documented as of this encounter
--- OUTSIDE RECORDS SUMMARY | 2025-02-10 07:22 | XMS_ITS | Encounter Summary ---
Author Organization [place] Address [address] [facility] [place] [address] Care Team Providers Care Orthopedic Shoe Maker Name Role Phone Lori Alonso NP Unavailable [phone] No Ref-Primary, Physician Primary Care Provider Jessica Farmer MD Unavailable Reason for Referral * Consultation (Routine: Next available opening) - Pending Review Specialty Diagnoses / Procedures Referred By Contfawn t Referred To Contact Diagnoses related condition, antepartum Edyta Abraham APRN [facility] [address] [place] [address] Phone: tel: fax: [facility] [place] [address] [place] [address] Phone: tel: fax: Referral ID Status Reason Start Date Expiration Date V isits Requested Visits Authorized [id number] Pending Review 02/09/2025 02/09/2026 1 1 Question Answer Preferred Location: [facility] - [place] Working Due Date: 09/04/2025 US Ordering Instructions: If US ONLY is requested, select appropriate US Order and DO NOT order [facility] Consult. Reason for Referral: Ultrasound Ultrasound - Includes Interpretation/Recommendations (*indicates inclusion of genetic counseling): Comprehensive US (>= 18w0d GA) - mono/di Indication (* indicates inclusion of genetic counseling): Other (enter details in Comments) - early FAS/level 2 @16 weeks Fax number results need to be [...] st Contact Info) Description 02/09/2025 Transcribe Orders [facility] [place] [address] [place] [address] Edyta Abraham APRN PLASTIC PRESS OPERATOR [facility] [address] [place] [id number] related condition, antepartum (Primary Dx) Social History [...] Sex Assigned at Female 06/01/2022 11:23 AM TAX COLLECTION COORDINATOR Legal Sex Female 3:40 AM TAX COLLECTION COORDINATOR Gender Identity Female 09/29/2020 7:32 PM CDT [...] documented as of this encounter Care Teams Orthopedic Shoe Maker Relationship Specialty Start Date End Date No Ref-Primary, Physician PCP - General 06/30/23 Lori Alonso NP [facility] [address] [place] [address] Nurse Practitioner Nurse Practitioner Psych/Mental Health 12/22/16 Jessica Farmer MD [address] [place], [place] [address] Assigned PCP 04/05/24 documented as of this encounter
--- OUTSIDE RECORDS SUMMARY | 2025-02-10 07:22 | XMS_ITS | Clinical Summary ---
Author Organization [place] Address [address] [place] [address] Care Team Providers Care Hvac Engineer Name Role Phone Lori Alonso NP Unavailable [phone] No Ref-Primary, Physician Primary Care Provider Jessica Farmer MD Unavailable Allergies Active Allergy Reactions Criticality Noted Date Comments Amoxicillin 01/06/2011 Rash as a child Cefprozil 01/06/2011 Rash as a child Medications * This document contains information received from the source organization and may not represent a complete record from that organization. multivitamin, therapeutic (THERA-VIT) TABS tabletIndications :Alcohol dependence with uncomplicated intoxication (H) Take 1 tablet by mouth daily 1 Active Additional Information Patient not taking.Reported on 04/03/2024 mometasone (ASMANEX TWISTHALER) 110 MCG/ACT inhalerIndication s:Mild persistent asthma with acute exacerbation Inhale 1 puff into the lungs every evening 3 each 3 4 Active Additional Information Patient not taking.Reported on 04/03/2024 albuterol (PROAIR HFA/PROVENTIL HFA/VENTOLIN HFA) 108 (90 Base) MCG/ACT inhalerIndication s:Mild persistent asthma with acute exacerbation Inhale 2 puffs into the lungs every 6 hours as needed for shortness of breath or wheezing 8.5 g 4 Active benzonatate (TESSALON) 100 MG capsuleIndication s:Acute bronchitis due to other specified organisms Take 1 capsule (100 mg) by mouth 3 times daily as needed for cough. 21 capsule 4 Active Active Problems Problem Noted Date Diagnosed Date Alcohol dependence in remission 06/14/2021 Bipolar 2 disorder 05/01/2021 JERICHO (generalized anxiety disorder) 03/30/2021 Self-injurious behavior 03/30/2021 Alcohol dependence with uncomplicated intoxicati on 03/30/2021 Anxiety 10/18/2020 Intermittent asthma without complication, unspecified asthma severity 11/11/2019 ADHD (attention deficit hype ractivity disorder), inattentive type 05/04/2015 Major depressive disorder, recurrent episode, mo derate 10/15/2013 Panic disorder without agoraphobia 12/11/2012 Hyperlipidemia LDL goal <160 09/05/2011 Headache disorder Moderate dysplasia of cervix (PATO II) Overview (12/08/2022): 12/2009 NIL pap 05/22/11 ASCUS pap, + HR HPV 09/29/11 ASCUS pap, + HR HPV 09/03/12 NIL pap 12/03/14 LSIL pap, + HR HPV (not 16/18) 12/18/14 [place] Bx: PATO 1, ECC: neg 02/16/16 ASCUS pap, neg HR HPV 03/08/17 LSIL pap, + HR HPV (not 16/18) 03/19/17 [place] Bx: PATO 2, ECC: PATO 1. TCA x 4 done rather than LEEP to treat per patient preference. 10/03/17 NIL pap [Above per Scanned Records] 09/29/20 NIL pap, neg HR HPV. Plan 1 year cotest 09/14/21 Reminder mychart 10/12/21 Reminder call-LM 11/04/21 Lost to follow up 06/01/22 NIL, +HR HPV, not 16/18. Plan [place] bef 08/30/22 06/08/22 Pt notified, plans to schedule Colposcopy with [facility]. 07/27/22 Reminder Mychart (2mo) 08/25/22 [place] not done. Tracking updated for 6 mo colp/pap due 11/29/22 11/10/22 Reminder MyChart / my chart read by patient 12/08/22 Lost to follow-up for pap tracking Resolved Problems Problem Noted Date Diagnosed Date Resolved Date Superficial laceration 03/30/202105/01 Moderate episode of recurren t major depressive disorder 03/30/2021 05/01/2021 Controlled substance agreeme nt signed-food prep worker okay 05/04/17 06/04/2017 05/01/2021 [place] 02/12/2012 05/01/2021 Normal , first 12/10/201104/13 Normal labor and delivery 12/10/2011 Encounters Date Type Department Care Team Description 02/09/2025 Transcribe Orders [facility] [address] [place] [address] Edyta Abraham, NOEMY PROTOTYPE MACHINE OPERATOR related condition, antepartum (Primary Dx) 02/09/[address] [facility] [address] [place] [address] Edyta Abraham, NOEMY PROTOTYPE MACHINE OPERATOR related condition, antepartum (Primary Dx) 02/09/[address] [facility] [address] [place] [address] Edyta Abraham, NOEMY PROTOTYPE MACHINE OPERATOR related condition, antepartum (Primary Dx) from Last 3 Months Immunizations Immunization Administration Dates Next Due COVID-19 Vaccine (Eva) 04/01/2021 Comvax (HIB/HepB) 09/30/1996,05/17/1993,06/17/18 92 HEPA 04/19/2009,07/31/2007,05/26/2003 HIB (PRP-T) 1991 HPV 04/19/2009,11/21/2007,07/31/2007 HepB 09/28/1994,05/09/1994,04/03/1994 Influenza (IIV3) PF 05/04/2015, 2,04/11/2008,2002 Influenza Intranasal Vaccine 01/19/2009 Influenza Vaccine >6 months,quad, PF 01/27/2016 MMR (MMRII) 12/03/1998 Mantoux Tuberculin Skin Test 11/21/2017 Meningococcal (Menomune ) 07/31/2007 Poliovirus, inactivated (IPV) 05/17/1993, 992 TDAP (Adacel,Boostrix) 06/01/2022,12/11/2011,02/2004 TDAP Vaccine (Adacel) 12/11/2011 Varicella (Varivax) 07/31/2007,10/05/1994 Family History Medical History Relation Comments No Known Problems Brother No Known Problems Daughter Family History Negative Father bladder cancer Family History Negative Mother Relation Status Comments Brother Alive Daughter Alive Father Alive Mother Alive Sister Son Social History Tobacco Use Types Packs/Day Years [...] Sex Assigned at Female 06/01/2022 11:23 AM ART TRACER Legal Sex Female 3:40 AM ART TRACER Gender Identity Female 09/29/2020 7:32 PM CDT Sexual Orientation Straight 09/29/2020 7: 32 PM CDT Last Filed Vital Signs Vital Sign Reading Time Taken Comments Blood Pressure 116/82 10/02/2023 1:49 PM CDT Pulse 96 10/02/2023 1:49 PM CDT Temperature 36.6 C (97.8 F) 10/02/2023 1:49 PM CDT Respiratory Rate 18 10/02/2023 1:49 PM CDT Oxygen Saturation 98% 10/02/2023 1:49 PM CDT Inhaled Oxygen Concentration - - Weight 83.4 kg (183 lb 12.8 oz) 10/02/2023 1:49 PM CDT Height 170.2 cm (5' 7) 10/02/2023 1:49 PM CDT Body Mass Index 28.79 10/02/2023 1:49 PM CDT Plan of Treatment Health Maintenance Due Date Last Done Comments ASTHMA ACTION PLAN 1991 PNEUMOCOCCAL VACCINE: PEDIATRICS (0 to 5 YEARS) AND AT-RISK PATIENTS (6 to 49 YEARS) (1 of 2 - PCV) 2010 LIPID 03/31/2022 03/31/2021, 09/29/2020 COLPOSCOPY 08/30/2022 ANNUAL REVIEW OF HM ORDERS 06/01/2023 06/01/2022 YEARLY PREVENTIVE VISIT 06/01/2023 06/01/19, 09/29/2020, 09/03/2012 ASTHMA CONTROL TEST 04/03/2024 10/02/2023, 06/01/2022, 10/18/2020, Additional history exists COVID-19 VACCINE (2 - season) 2025 04/01/2021 INFLUENZA VACCINE (#1) 2025 8 (Declined), 01/27/2016, 05/04/2015, Additional history exists ADVANCE CARE PLANNING 09/30/2025 09/30/2020 HPV TEST 06/01/2027 06/01/2022, 09/11, 2017 PAP 06/01/2027 06/01/2022, 09/11, 10/03/2017, Additional history exists DTAP/TDAP/TD VACCINE (4 - Td or Tdap) 06/01/2032 06/01/2022, 12/11/2011, 12/11/2011, Additional history exists ZOSTER VACCINE (1 of 2) 2041 HEPATITIS B VACCINE Completed 09/30/1996, 09/28/1994, 05/09/1994, Additional history exists MENINGITIS VACCINE Aged Out 07/31/2007 No longer eligible based on patient's age to complete this topic HPV VACCINE Completed 04/19/2009, 11/11, 07/31/2007 HIV SCREENING Completed 05/22/2011 HEPATITIS C SCREENING Completed 06/01/2022 HPV FOLLOW-UP Discontinued 06/01/2022, 09/11, 2017 PAP FOLLOW-UP Discontinued 06/01/2022, 09/11, 10/03/2017, Additional history exists Procedures Procedure Name Priority Date/Time Associated Diagnosis Comments HEPATITIS C SCREEN REFLEX TO HCV RNA QUANT AND GENOTYPE Routine 06/01/2022 4:01 PM ART TRACER Need for hepatitis C screening test GYNECOLOGIC CYTOLOGY Routine 06/01/2022 3:38 PM ART TRACER Cervical cancer screening HPV HIGH RISK TYPES DNA CERVICAL Routine 06/01/2022 3:38 PM ART TRACER Cervical cancer screening LIPID PROFILE Routine 03/31/2021 7:30 AM ART TRACER HIV 1 AND 2 ANTIBODY (QUEST) Routine 05/22/2011 from Last 3 Months or Most Recently Relevant to Health Maintenance Results * Hepatitis C Screen Reflex to HCV RNA Quant and Genotype (06/01/2022 4:01 PM ART TRACER) Hepatitis C Antibody Nonreactive Nonreactive 06/04/2022 1:16 AM ART TRACER [facility]EN DO Blood STRUCTURE OF LEFT UPPER LIMB / Unknown Venipuncture / Unknown 06/01/2022 4:01 PM ART TRACER 06/01/2022 4:01 PM ART TRACER Narrative [facility]/ENDO - 06/04/2022 1:16 AM ART TRACER Assay performance characteristics have not been established for newborns, infants, and children. us Brionna Naik APRN PROTOTYPE MACHINE OPERATOR LAB - BLOOD ORDERABLES Final Result [facility]ENDO [facility]Prot/Endo [address] [facility] [address] [address], [facility] [phone] * Pap Screen with HPV - recommended age 30 - 65 years (06/01/2022 3:38 PM ART TRACER) Interpretation Negative for Intraepithelial Lesion or Malignancy (NILM) 06/06/2022 1:33 PM ART TRACER [facility] LAB[facility] at 1333 ART TRACER Comment Papanicolaou Test Limitations: Cervical cytology is a screening test with limited sensitivity, and regular screening is critical for cancer prevention. Pap tests are primarily effective for the diagnosis/prevent ion of squamous cell carcinoma, not adenocarcinoma or other cancers. 06/06/2022 1:33 PM ART TRACER [facility] Specimen Adequacy Satisfactory for evaluation, endocervical/steele sformation zone component present 06/06/2022 1:33 PM ART TRACER [facility] Clinical Information none 06/06/2022 1:33 PM ART TRACER [facility] Reflex Testing Yes regardless of result 06/06/2022 1:33 PM ART TRACER [facility] Previous Abnormal? No 06/06/2022 1:33 PM ART TRACER [facility] Performing Labs The technical component of this testing was completed at [facility] 06/06/2022 1:33 PM ART TRACER [facility] Brushing CERVIX UTERI STRUCTURE / Unknown Non-blood Collection / Unknown 06/01/2022 3:38 PM ART TRACER 06/01/2022 5:07 PM ART TRACER Brionna Naik APRN PROTOTYPE MACHINE OPERATOR LAB - VERONICA AP Final R esult [facility] Specialty Lab [address] [facility] [address], [facility] [phone] * (ABNORMAL) HPV High Risk Types DNA Cervical (06/01/2022 3:38 PM ART TRACER) Other HR HPV Positive(A) Negative 06/08/2022 12:18 PM ART TRACER [facility] HPV16 DNA Negative Negative 06/08/2022 12:18 PM ART TRACER [facility] HPV18 DNA Negative Negative 06/08/2022 12:18 PM ART TRACER [facility] FINAL DIAGNOSIS This patient's sample is positive for other HR HPV DNA (types 31, 33, 35, 39, 45, 51, 52, 56, 58, 59, 66 or 68), not HPV 16 or HPV 18 DNA. This result requires clinical correlation with concurrent cytology findings. This test was developed and its performance characteristics determined by the [facility], [facility] Diagn[facility] Laboratory. It has not been cleared or approved by the FDA. The laboratory is regulated under CLIA as qualified to perform high-complexity testing. This test is used for clinical purposes. It should not be regarded as investigational or for research. METHODOLOGY: The Shannan Rajesh 4800 system uses automated extraction, simultaneous amplification of HPV (L1 region) and beta-globin, followed by real time detection of fluorescent labeled HPV and beta globin using specific oligonucleotide probes. The test specifically identifies types HPV 16 DNA and HPV 18 DNA while concurrently detecting the rest of the high risk types (31, 33, 35, 39, 45, 51, 52, 56, 58, 59, 66 or 68). COMMENTS: This test is not intended for use as a screening device for woman under age 30 with normal cervical cytology. Results should be correlated with cytologic and histologic findings. Close clinical followup is recommended. 06/08/2022 12:18 PM ART TRACER [facility] Brushing CERVIX UTERI STRUCTURE / Unknown Non-blood Collection / Unknown 06/01/2022 3:38 PM ART TRACER 06/07/2022 10:24 AM ART TRACER us Brionna Naik APRN PROTOTYPE MACHINE OPERATOR LAB - BLOOD ORDERABLES Final Result [facility] [address] [facility] [address], [facility] [phone] * (ABNORMAL) Lipid panel (03/31/2021 7:30 AM ART TRACER) Cholesterol 213(H) <200 mg/dL 03/31/2021 9:04 AM ART TRACER [facility] Triglycerides 204(H) <150 mg/dL 03/31/2021 9:04 AM ART TRACER [facility] Direct Measure HDL 51 >=50 mg/dL 03/31/2021 9:04 AM ART TRACER [facility] LDL Cholesterol Calculated 121(H) <=100 mg/dL 03/31/2021 9:04 AM ART TRACER [facility] Non HDL Cholesterol 162(H) <130 mg/dL 03/31/2021 9:04 AM ART TRACER [facility] Blood STRUCTURE OF LEFT UPPER LIMB / Unknown Venipuncture / Unknown 03/31/2021 7:30 AM ART TRACER 03/31/2021 8:29 AM ART TRACER Narrative [facility] - 03/31/2021 9:04 AM ART TRACER Cholesterol Desirable: <200 mg/dL Triglycerides Normal: Less than 150 mg/dL Borderline High: 150-199 mg/dL High: 200-499 mg/dL Very High: Greater than or equal to 500 mg/dL Direct Measure HDL Female: Greater than or equal to 50 mg/dL Male: Greater than or equal to 40 mg/dL LDL Cholesterol Desirable: <100mg/dL Above Desirable: 100-129 mg/dL Borderline High: 130-159 mg/dL High: 160-189 mg/dL Very High: >= 190 mg/dL Non HDL Cholesterol Desirable: 130 mg/dL Above Desirable: 130-159 mg/dL Borderline High: 160-189 mg/dL High: 190-219 mg/dL Very High: Greater than or equal to 220 mg/dL Ashlyn Mehta APRN PROTOTYPE MACHINE OPERATOR LAB - BLOOD ORDER HARITHA Final Result [facility] [address] [place] [address], [facility] [phone] * HIV 1 and 2 Antibody (05/22/2011) HIV-1 & HIV-2 Antibody MISYS HIV 1&2 Antibody Neg [facility] Blood specimen (specimen) us Patient Reported LAB - BLOOD ORDERABLES Final Re sult M[facility] from Last 3 Months or Most Recently Relevant to Health Maintenance Insurance [place] OF [place] [facility] Advance Directives For more information, please contact: [phone] * Full Code (Latest Code Status on File) Date Activated Date Inactivated Comments 03/30/2021 9:25 PM 04/04/2021 3:11 PM All basic and advanced life-sustaining interventions are performed as appropriate Question Answer Comments Code status determined by: Discussion with patie nt/ legal decision maker Care Teams Hvac Engineer Relationship Specialty Start Date End Date No Ref-Primary, Physician PCP - General 06/30/23 Lori Alonso NP [facility] [address] [place] [address] Nurse Practitioner Nurse Practitioner Psych/Mental Health 12/22/16 Jessica Farmer MD [address] [place], [place] [address] Assigned PCP 04/05/24
--- OUTSIDE RECORDS SUMMARY | 2025-02-10 07:22 | XMS_ITS | Encounter Summary ---
Author Organization [place] Address [address] [facility] [place] [address] Care Team Providers Care Checker Dump Grounds Name Role Phone Lori Alonso KARLOS Unavailable [phone] Jovani Watts MD Primary Care Provid er Jovani Watts MD Unavailable [phone] Barbara Rapp MD Unavailable Beena Jimenez MD Unavailable Unavailable Christine Cagle DATABASE SPECIALIST Unavailable Brionna Naik APRN CASE THERAPIST Unavailable [phone] No Ref-Primary, Physician Primary Care Provider Celeste Gordon PA-C Unavailable Jessica Farmer MD Unavailable Reason for Visit * Reason Comments Medication Refill Encounter Details Date Type Department Care Team (Late st Contact Info) Description 05/06/2021 Refill [facility] [address] [place] [address] Jovani Watts MD [address] [place] [address] Medication Refill Social History Tobacco Use Types Packs/Day Years Used Date Smoking Tobacco: Former Cigarettes Smokeless Tobacco: Never Comments:2-3 cigs per day Alcohol Use Standard Drinks/Week Comments Yes 0 (1 standard drink = 0.6 oz pur e alcohol) 1-2 liters of vodka per week PHQ-2 Answer Date Recorded PHQ-2 Score 0 10/18/2020 Comments No Sex and Gender Information Value Date Recorded Sex Assigned at Female 06/01/2022 11:23 AM JANITOR CUSTODIAN Legal Sex Female 3:40 AM JANITOR CUSTODIAN Gender Identity Female 09/29/2020 7:32 PM CDT Sexual Orientation Straight 09/29/2020 7: 32 PM CDT COVID-19 Exposure Response Date Recorded In the last month, have you been in contact with someone who was confirmed or suspected to have Coronavirus / COVID-19? No / Unsure 04/26/2021 3:04 PM JANITOR CUSTODIAN documented as of this encounter Miscellaneous Notes * Telephone Encounter - Kerry Smith RN - 05/09/2021 9:06 AM CST Medication refused, filled 04/26/21 for a 6 month supply. Refused Prescriptions: Disp Refills sertraline (ZOLOFT) 50 MG tablet [Pharmacy*90 tab*1 Sig: TAKE 1 TABLET(50 MG) BY MOUTH DAILY TOR CUSTODIAN documented in this encounter Plan of Treatment Not on file documented as of this encounter Visit Diagnoses Diagnosis Major depressive disorder, recurrent episode, moderate (H) Major depressive disorder, recurrent episode, moderate JERICHO (generalized anxiety disorder) Generalized anxiety disorder documented in this encounter Additional Health Concerns Infection Onset Date Last Indicated Resolved Time Rule Out COVID-19 06/30/2023 06/30/2023 06/30/2023 3:44 PM JANITOR CUSTODIAN Assessment Noted Time PHQ-9 Depression Total Score: 0 10/19/19 11:09 AM CDT documented as of this encounter Care Teams Checker Dump Grounds Relationship Specialty Start Date End Date Jovani Watts MD [address] [place] [address] PCP - General Internal Medicine 09/29/20 06/25/23 No Ref-Primary, Physician PCP - General 06/30/23 Lori Alonso NP [facility] [address] [place] [address] Nurse Practitioner Nurse Practitioner Psych/Mental Health 12/22/16 Jovani Watts MD [address] [place] [address] Assigned PCP 10/07/20 04/21/22 Barbara Rapp MD [address] [place] [address] [place] [address] Assigned Behavioral Health Provider 06/19/21 06/09/22 Beena Jimenez MD I[facility]CTIVE IN [place] 04/12/2024 Assigned PCP 04/22/22 06/16/22 Christine Cagle, DATABASE SPECIALIST [address] [address] Assigned Behavioral Health Provider 06/10/22 12/15/22 Brionna Naik APRN CASE THERAPIST [address] [place] [address] Assigned PCP 06/17/22 12/03/23 Celeste Gordon PA-C [address] [place] [address] Assigned PCP 12/04/23 04/04/24 Jessica Farmer MD [address] [place] [address] Assigned PCP 04/05/24 documented as of this encounter
--- OUTSIDE RECORDS SUMMARY | 2025-02-10 07:22 | XMS_ITS | Clinical Summary ---
Author Organization [facility] Address [address] [place] [address] Care Team Providers Care Semiconductor Technician Name Role Phone No Primary/Referring, Phy Primary Care Provider Unavailable Source Comments You are receiving this document as you are listed as the primary care provider,follow-up provider, or the patient has been referred to you for consultation.This is in compliance with the Medicare and[facility] Hospital[facility] EHR Incentive Program,which states Providers who transition their patient to another setting of careor provider of care or refers their patient to another provider of care shouldprovide summary care record for each transition of care or referral. [employer] Allergies Active Allergy Reactions Criticality Noted Date Comments Amoxicillin Rash 04/01/2009 PN: LW Reaction: Rash, Generalized Cefazolin Rash 01/02/2011 Cefprozil 04/01/2009 PN: LW Reaction: rash Medications unknown medication Indications : PN: 04/01/2009 Active amphetamine-dext roamphetamine (ADDERALL XR) 20 MG 24 hour release capsule Take 20 mg by mouth daily. Active venlafaxine (EFFEXOR) 75 MG tablet Take 75 mg by mouth. Active Active Problems Problem Noted Date Diagnosed Date Common migraine 01/03/2011 Medication overuse headache 01/03/2011 Social History Tobacco Use Types Packs/Day Years Used Date Smoking Tobacco: Never Comments No Sex and Gender Information Value Date Recorded Sex Assigned at Not on file Legal Sex Female 5:34 AM CDT Gender Identity Not on file Sexual Orientation Not on file Last Filed Vital Signs Vital Sign Reading Time Taken Comments Blood Pressure 118/83 11/30/2016 8:54 AM CDT Pulse 104 11/30/2016 8:54 AM CDT Temperature 36.6 C (97.9 F) 03/12/2011 11:43 AM CDT Respiratory Rate 14 03/12/2011 11:43 AM CDT Oxygen Saturation - - Inhaled Oxygen Concentration - - Weight 63 kg (139 lb) 01/02/2011 2:34 PM CDT Height - - Body Mass Index - - Plan of Treatment Health Maintenance Due Date Last Done Comments Hep C Screening (Preventive Services) 1991 HIV Screening (Preventive Services) 2007 Adult Preventive Visit 2009 DTaP/Tdap/Td Vaccine (1 - Tdap) 2010 HepB Vaccine (1) 2010 Cervical Cancer Screening Due 09/04/2012 09/03/2012 COVID-19 Vaccine (1 - 2023-2 5 season) 2025 Influenza Vaccine (#1) 2025 Zoster/Shingles Vaccine (1 o f 2) 2041 Hib Vaccine Completed 09/30/1996, 05/17/1993, 1991 MCV4 Vaccine Aged Out 07/31/2007 No longer eligi ble based on patient's age to complete this topic HPV Vaccine Completed 04/19/2009, 11/21/2007, 07/31/2007 HepA Vaccine Completed 04/19/2009, 07/31/2007, 05/26/2003 IPV (Polio) Vaccine Aged Out No longe r eligible based on patient's age to complete this topic Meningococcal B Vaccine Aged Out No l onger eligible based on patient's age to complete this topic Pneumococcal Vaccine Aged Out No long er eligible based on patient's age to complete this topic Insurance SELF INSURED HP SELF INSURED HP SELF INSURED HP PREVENTIVE SI DENTAL Care Teams Semiconductor Technician Relationship Specialty Start Date End Date No Primary/Referring, Phy PCP - General 12/13/16
--- OUTSIDE RECORDS SUMMARY | 2025-02-10 07:22 | XMS_ITS | Encounter Summary ---
Author Organization [facility] Address [address] [place] [address] Care Team Providers Care Handkerchief Presser Name Role Phone No Primary/Referring, Phy Primary Care Provider Unavailable Encounter Details Date Type Department Care Team (Latest Contact Info) Description 12/28/2016 Correspondence TMD at [address] [address] Jo-Ann Cerda, [place], [place] [address] [place] [address] MEDICAL EQUIPMENT PROOF OF DELIVERY Social History Tobacco Use Types Packs/Day Years [...] on filedocumented in this encounter Care Teams Handkerchief Presser Relationship Specialty Start Date End Date No Primary/Referring, Lucyy PCP - General 12/13/16 documented as of this encounter
--- OUTSIDE RECORDS SUMMARY | 2025-02-10 07:22 | XMS_ITS | Encounter Summary ---
Author Organization [place] Address [address] [facility] [place] [address] Care Team Providers Care Farm Hand Name Role Phone Gavin Lori Arias CUSTOM SHOE DESIGNER AND MAKER Unavailable [phone] Brionna Naik APRN MANAGER FINE Unavailable [phone] No Ref-Primary, Physician Primary Care Provider Celeste GordonC Unavailable Jessica Farmer MD Unavailable Encounter Details Date Type Department Care Team (Late st Contact Info) Description 07/27/2023 MyC Medical Advice [address] [phone] Billie Kaur Social History Tobacco Use Types Packs/Day Years Used Date Smoking Tobacco: Former Cigarettes Smokeless Tobacco: Never Alcohol Use Standard Drinks/Week Comments Not Currently 0 (1 standard drink = 0.6 oz pur e alcohol) PHQ-2 Answer Date Recorded PHQ-2 Score 2 06/01/2022 Adolescent Education Answer Date Record ed Getting School Help Needed Not on file 02/02 Comments No Sex and Gender Information Value Date Recorded Sex Assigned at Female 06/01/2022 11:23 AM LOGISTICS/SHIPPER Legal Sex Female 3:40 AM LOGISTICS/SHIPPER Gender Identity Female 09/29/2020 7:32 PM CDT Sexual Orientation Straight 09/29/2020 7: 32 PM CDT documented as of this encounter Plan of Treatment Not on file documented as of this encounter Visit Diagnoses Not on filedocumented in this encounter Additional Health Concerns Assessment Noted Time PHQ-9 Depression Total Score: 5 06/01/19 23 3:11 PM LOGISTICS/SHIPPER documented as of this encounter Care Teams Farm Hand Relationship Specialty Start Date End Date No Ref-Primary, Physician PCP - General 06/30/23 Lori Alonso NP [facility] [address] [place] [address] Nurse Practitioner Nurse Practitioner Psych/Mental Health 12/22/16 Brionna Naik APRN MANAGER FINE [address] [place] [address] Assigned PCP 06/17/22 12/03/23 Celeste Gordon PA-C [address] [place] [address] Assigned PCP 12/04/23 04/04/24 Jessica Farmer MD [address] [place] [address] Assigned PCP 04/05/24 documented as of this encounter
--- OUTSIDE RECORDS SUMMARY | 2025-02-10 07:22 | XMS_ITS | Encounter Summary ---
Author Organization [place] Address [address] [place] [address] Care Team Providers Care Child Welfare Assistant Name Role Phone Lori Alonso KARLOS Unavailable [phone] Jovani Watts MD Primary Care Provid er Jovani Watts MD Unavailable [phone] Barbara Rapp MD Unavailable [phone] Beena Jimenez MD Unavailable Unavailable Christine Cagle SCHOOL OCCUPATIONAL THERAPIST Unavailable Brionna Naik APRN PAINTER MAINTENANCE Unavailable No Ref-Primary, Physician Primary Care Provider Celeste Gordon PA-C Unavailable Jessica Farmer MD Unavailable Encounter Details Date Type Department Care Team (Late st Contact Info) Description 01/19/[address] [facility] [address] [place] [address] Jovani Watts MD [address] [place] [address] Intermittent asthma without complication, unspecified asthma severity Social History Tobacco Use Types Packs/Day Years Used Date Smoking Tobacco: Former Cigarettes Smokeless Tobacco: Never Alcohol Use Standard Drinks/Week Comments Not Currently 0 (1 standard drink = 0.6 oz pur e alcohol) PHQ-2 Answer Date Recorded PHQ-2 Total Score (Adult) - Positive if 3 or more points; Administer PHQ-9 if positive 2 06/14/2021 Comments No Sex and Gender Information Value Date Recorded Sex Assigned at Female 06/01/2022 11:23 AM APPEALS ASSISTANT Legal Sex Female 3:40 AM APPEALS ASSISTANT Gender Identity Female 09/29/2020 7:32 PM CDT Sexual Orientation Straight 09/29/2020 7: 32 PM CDT documented as of this encounter Miscellaneous Notes * Telephone Encounter - Jovani Watts MD - 01/19/2022 5:53 PM CDT I have not seen this pt since more than 1 yr, Albuterol inhaler faxed for now. Needs appt for refills. * Telephone Encounter - Yessenia Conteh RN - 01/19/2022 4:48 PM CDT Last ordered more than 1 year ago. Will route to primary care provider. Tara Conteh R.N. documented in this encounter Plan of Treatment Not on file documented as of this encounter Visit Diagnoses Diagnosis Intermittent asthma without complication, unspecified asthma severity documented in this encounter Additional Health Concerns Infection Onset Date Last Indicated Resolved Time Rule Out COVID-19 06/30/2023 06/30/2023 06/30/2023 3:44 PM APPEALS ASSISTANT Assessment Noted Time PHQ-9 Depression Total Score: 5 06/15/19 7:03 AM APPEALS ASSISTANT documented as of this encounter Care Teams Child Welfare Assistant Relationship Specialty Start Date End Date Jovani Watts MD [address] [place] [address] PCP - General Internal Medicine 09/29/20 06/25/23 No Ref-Primary, Physician PCP - General 06/30/23 Lori Alonso EMPLOYMENT AND CLAIMS AIDE [facility] [address] [place] [address] Nurse Practitioner Nurse Practitioner Psych/Mental Health 12/22/16 Jovani Watts MD [address] [place] [address] Assigned PCP 10/07/20 04/21/22 Barbara Rapp MD [address] [place] [address] [place] [address] Assigned Behavioral Health Provider 06/19/21 06/09/22 Beena Jimenez MD INACTIVE IN [place] 04/12/2024 Assigned PCP 04/22/22 06/16/22 Christine Cagle, SCHOOL OCCUPATIONAL THERAPIST [facility] [address] Assigned Behavioral Health Provider 06/10/22 12/15/22 Brionna Naik APRN PAINTER MAINTENANCE [address] [place] [address] Assigned PCP 06/17/22 12/03/23 Celeste Gordon PA-C [address] [place] [address] Assigned PCP 12/04/23 04/04/24 Jessica Farmer MD [address] [facility] [place] [address] Assigned PCP 04/05/24 documented as of this encounter
--- OUTSIDE RECORDS SUMMARY | 2025-02-10 07:23 | XMS_ITS | Encounter Summary ---
Author Organization [place] Address [address] [facility] [place] [address] Care Team Providers Care Synchronizer Name Role Phone Lori Alonso Hugo EVERETT Unavailable [phone] Jovani Watts MD Primary Care Provid er Jovani Watts MD Unavailable [phone] Barbara Rapp MD Unavailable Beena Jimenez MD Unavailable Unavailable Christine Cagle EQUIPMENT OPERATING ENGINEER Unavailable Brionna Naik APRN HAND OUTSIDE CUTTER Unavailable [phone] No Ref-Primary, Physician Primary Care Provider Celeste Gordon PA-C Unavailable Jessica Farmer MD Unavailable Encounter Details Date Type Department Care Team (Late st Contact Info) Description 09/28/2021 [facility] Medical Advice [address] [place] [address] Kerry Smith, RN Social History Tobacco Use Types Packs/Day Years [...] Sex Assigned at Female 06/01/2022 11:23 AM TURKISH RUBBER Legal Sex Female 3:40 AM TURKISH RUBBER Gender Identity Female 09/29/2020 7:32 PM CDT Sexual Orientation Straight 09/29/2020 7: 32 PM CDT documented as of this encounter Plan of Treatment Not on file documented as of this encounter Visit Diagnoses Not on filedocumented in this encounter Additional Health Concerns Infection Onset Date Last Indicated Resolved Time Rule Out COVID-19 06/30/2023 06/30/2023 06/30/2023 3:44 PM TURKISH RUBBER Assessment Noted Time PHQ-9 Depression Total Score: 5 06/15/19 22 7:03 AM TURKISH RUBBER documented as of this encounter Care Teams Synchronizer Relationship Specialty Start Date End Date Jovani Watts MD [address] [place], [place] [address] PCP - General Internal Medicine 09/29/20 06/25/23 No Ref-Primary, Physician PCP - General 06/30/[address] [facility] [address] [place], [place] [address] Nurse Practitioner Nurse Practitioner Psych/Mental Health 12/22/16 Jovani Watts MD [address] [place] [address] Assigned PCP 10/07/20 04/21/22 Barbara Rapp MD [address] [place] [address] [place] [address] Assigned Behavioral Health Provider 06/19/21 06/09/22 Beena Jimenez MD INACTIVE IN [place] 04/12/2024 Assigned PCP 04/22/22 06/16/22 Christine Cagle MSW [address] [address] Assigned Behavioral Health Provider 06/10/22 12/15/22 Brionna Naik APRN HAND OUTSIDE CUTTER [address] [place] [address] Assigned PCP 06/17/22 12/03/23 Celeste Gordon PA-C [address] [place] [address] Assigned PCP 12/04/23 04/04/24 Jessica Farmer MD [address] [place] [address] Assigned PCP 04/05/24 documented as of this encounter
--- OUTSIDE RECORDS SUMMARY | 2025-02-10 07:23 | XMS_ITS | Encounter Summary ---
Author Organization [place] Address [address] [place] [address] Care Team Providers Care Wellness Consultant Name Role Phone Lori Alonso KARLOS Unavailable [phone] Ramona Arguello MD Unavailable [phone] Jovani Watts MD Primary Care Provid er Jovani Watts MD Unavailable + [phone] Barbara Rapp MD Unavailable [phone] Beena Jimenez MD Unavailable Unavailable Christine Cagle PATIENT CARE SECRETARY Unavailable Brionna Naik APRN CHEMICAL RECOVERY OPERATOR Unavailable [phone] No Ref-Primary, Physician Primary Care Provider Celeste GordonC Unavailable Jessica Farmer MD Unavailable Encounter Details Date Type Department Care Team (Latest Contact Info) Description 09/29/2020 Historic Results Social History Tobacco Use Types Packs/Day Years Used Date Smoking Tobacco: Former Cigarettes Smokeless Tobacco: Never Comments:2-3 cigs per day Alcohol Use Standard Drinks/Week Comments Yes 0 (1 standard drink = 0.6 oz pure alcohol) occasionally-less once per week PHQ-2 Answer Date Recorded PHQ-2 Score 0 09/30/2020 Comments No Sex and Gender Information Value Date Recorded Sex Assigned at Female 06/01/2022 11:23 AM MARBLE CEILING INSTALLER Legal Sex Female 3:40 AM MARBLE CEILING INSTALLER Gender Identity Female 09/29/2020 7:32 PM CDT Sexual Orientation Straight 09/29/2020 7: 32 PM CDT COVID-19 Exposure Response Date Recorded In the last month, have you been in contact with someone who was confirmed or suspected to have Coronavirus / COVID-19? No / Unsure 09/29/2020 8:48 AM CDT documented as of this encounter Plan of Treatment Not on file documented as of this encounter Visit Diagnoses Not on filedocumented in this encounter Additional Health Concerns Infection Onset Date Last Indicated Resolved Time Rule Out COVID-19 06/30/2023 06/30/2023 06/30/2023 3:44 PM MARBLE CEILING INSTALLER Assessment Noted Time PHQ-9 Depression Total Score: 12 021 9:15 AM CDT documented as of this encounter Care Teams Wellness Consultant Relationship Specialty Start Date End Date Jovani Watts MD [address] [place] [address] PCP - General Internal Medicine 09/29/20 06/25/23 No Ref-Primary, Physician PCP - General 06/30/23 Lori Alonso NP [facility] [address] [place], [place] [address] Nurse Practitioner Nurse Practitioner Psych/Mental Health 12/22/16 Ramona Arguello MD [address] [place] [address] Assigned PCP 10/12/19 10/06/20 Jovani Watts MD [address] [facility] [place] [address] Assigned PCP 10/07/20 04/21/22 Barbara Rapp MD [address] [facility] [place] [address] Assigned Behavioral Health Provider 06/19/21 06/09/22 Beena Jimenez MD INACTIVE IN [place] 04/12/2024 Assigned PCP 04/22/22 06/16/22 Christine Cagle, PATIENT CARE SECRETARY [address] [address] Assigned Behavioral Health Provider 06/10/22 12/15/22 Brionna Naik APRN CHEMICAL RECOVERY OPERATOR [address] [place] [address] Assigned PCP 06/17/22 12/03/23 Celeste Gordon PA-C [address] [place] [address] Assigned PCP 12/04/23 04/04/24 Jessica Farmer MD [address] [place] [address] Assigned PCP 04/05/24 documented as of this encounter
--- OUTSIDE RECORDS SUMMARY | 2025-02-10 07:23 | XMS_ITS | Encounter Summary ---
Author Organization [place] Address [address] [facility] [place] [address] Care Team Providers Care Director Of Community Life Name Role Phone GavinLori Hugo EVERETT Unavailable [phone] Jovani Watts MD Primary Care Provid er Barbara Rapp MD Unavailable Beena Jimenez MD Unavailable Unavailable Christine Cagle APPRAISAL ANALYST Unavailable Brionna Naik APRN SPECIALTY FOODS COOK Unavailable No Ref-Primary, Physician Primary Care Provider Celeste Gordon PA-C Unavailable Jessica Farmer MD Unavailable Encounter Details Date Type Department Care Team (Late st Contact Info) Description 06/09/2022 MyC Medical Advice [address] [address] Brionna Naik, NOEMY SPECIALTY FOODS COOK [address] [place] [address] Social History Tobacco Use Types Packs/Day Years Used Date Smoking Tobacco: Former Cigarettes Smokeless Tobacco: Never Alcohol Use Standard Drinks/Week Comments Not Currently 0 (1 standard drink = 0.6 oz pur e alcohol) PHQ-2 Answer Date Recorded PHQ-2 Score 2 06/01/2022 Comments No Sex and Gender Information Value Date Recorded Sex Assigned at Female 06/01/2022 11:23 AM LIGHT RAIL TRANSIT OPERATOR Legal Sex Female 3:40 AM LIGHT RAIL TRANSIT OPERATOR Gender Identity Female 09/29/2020 7:32 PM CDT Sexual Orientation Straight 09/29/2020 7: 32 PM CDT COVID-19 Exposure Response Date Recorded In the last 10 days, have yo u been in contact with someone who was confirmed or suspected to have Coronavirus/COVID-19? No / Unsure 06/01/2022 2:58 PM LIGHT RAIL TRANSIT OPERATOR documented as of this encounter Plan of Treatment Not on file documented as of this encounter Visit Diagnoses Not on filedocumented in this encounter Additional Health Concerns Infection Onset Date Last Indicated Resolved Time Rule Out COVID-19 06/30/2023 06/30/2023 06/30/2023 3:44 PM LIGHT RAIL TRANSIT OPERATOR Assessment Noted Time PHQ-9 Depression Total Score: 5 06/01/19 23 3:11 PM LIGHT RAIL TRANSIT OPERATOR documented as of this encounter Care Teams Director Of Community Life Relationship Specialty Start Date End Date Jovani Watts MD [address] [place] [address] PCP - General Internal Medicine 09/29/20 06/25/23 No Ref-Primary, Physician PCP - General 06/30/23 Lori Alonso NP [facility] [address] [place] [address] Nurse Practitioner Nurse Practitioner Psych/Mental Health 12/22/16 Barbara Rapp MD [address] [place] [address] [place] [address] Assigned Behavioral Health Provider 06/19/21 06/09/22 Beena Jimenez MD INACTIVE IN [place] 04/12/2024 Assigned PCP 04/22/22 06/16/22 Chritsine Cagle MSW [address] [address] Assigned Behavioral Health Provider 06/10/22 12/15/22 Brionna Naik APRN SPECIALTY FOODS COOK [address] [place], [place] [address] Assigned PCP 06/17/22 12/03/23 Celeste Gordon PA-C [address] [place] [address] Assigned PCP 12/04/23 04/04/24 Jessica Farmer MD [address] [place] [address] Assigned PCP 04/05/24 documented as of this encounter
--- OUTSIDE RECORDS SUMMARY | 2025-02-10 07:23 | XMS_ITS | Encounter Summary ---
Author Organization [place] Address [address] [facility] [place] [address] Care Team Providers Care Nutrition Club Ambassador Name Role Phone GavinLori Hugo SNAKER Unavailable [phone] Jovani Watts MD Primary Care Provid er Christine Cagle CLINICAL ENGINEER Unavailable Brionna Naik APRN WASH TANK TENDER Unavailable No Ref-Primary, Physician Primary Care Provider Celeste Gordon PA-C Unavailable Jessica Farmer MD Unavailable Encounter Details Date Type Department Care Team (Late st Contact Info) Description 11/10/2022 [facility] Medical Advice [address] [address] Smita Vincent, RN Social History Tobacco Use Types Packs/Day Years Used Date Smoking Tobacco: Former Cigarettes Smokeless Tobacco: Never Alcohol Use Standard Drinks/Week Comments Not Currently 0 (1 standard drink = 0.6 oz pur e alcohol) PHQ-2 Answer Date Recorded PHQ-2 Score 2 06/01/2022 Comments No Sex and Gender Information Value Date Recorded Sex Assigned at Female 06/01/2022 11:23 AM PROJECTION ENGINEER Legal Sex Female 3:40 AM PROJECTION ENGINEER Gender Identity Female 09/29/2020 7:32 PM CDT Sexual Orientation Straight 09/29/2020 7: 32 PM CDT documented as of this encounter Plan of Treatment Not on file documented as of this encounter Visit Diagnoses Not on filedocumented in this encounter Additional Health Concerns Infection Onset Date Last Indicated Resolved Time Rule Out COVID-19 06/30/2023 06/30/2023 06/30/2023 3:44 PM PROJECTION ENGINEER Assessment Noted Time PHQ-9 Depression Total Score: 5 06/01/19 23 3:11 PM PROJECTION ENGINEER documented as of this encounter Care Teams Nutrition Club Ambassador Relationship Specialty Start Date End Date Jovani Watts MD [address] [place] [address] PCP - General Internal Medicine 09/29/20 06/25/23 No Ref-Primary, Physician PCP - General 06/30/23 Lori Alonso NP [facility] [address] [place] [address] Nurse Practitioner Nurse Practitioner Psych/Mental Health 12/22/16 Christine Cagle MSW [address] [address] Assigned Behavioral Health Provider 06/10/22 12/15/22 Brionna Naik APRN WASH TANK TENDER [address] [place] [address] Assigned PCP 06/17/22 12/03/23 Celeste Gordon PA-C [address] [place] [address] Assigned PCP 12/04/23 04/04/24 Jessica Farmer MD [facility] [place] [address] Assigned PCP 04/05/24 documented as of this encounter
--- NOTE | 2025-02-10 08:30 | ED.HA ---
HPI - Headache General Chief Complaint: Headache/Migraine Stated Complaint: Headache, Nausea,vision problem 10 1/2 weeks pg Time Seen by Provider: 02/10/25 08:02 History of Present Illness HPI Narrative: This 34-year-old female comes in reporting headache over the past 3 or 4 days. She felt better a couple days ago but it worsened again yesterday. She does feel like she has some congestion in her sinuses. She does not report any fever or cough or shortness of breath. She is about 10 weeks with twin gestation. She states that she has been taking Tylenol without much relief. She arrives here with normal vital signs. Related Data Home Medications ?Medication ?Instructions ?Recorded ?Confirmed docosahexaenoic acid 200 mg 200 mg PO DAILY 10/26/23 02/10/25 capsule ( DHA) calcium 500 mg tablet 1,000 mg PO DAILY 02/10/25 02/10/25 zinc 10 mg tablet 30 mg PO DAILY 02/10/25 02/10/25 Previous Rx's ?Medication ?Instructions ?Recorded ondansetron 4 mg disintegrating 4 mg PO Q6H #20 tabs 02/10/25 tablet Allergies Allergy/AdvReac Type Severity Reaction Status Date / Time amoxicillin Allergy Mild Verified 02/10/25 07:33 cefprozil Allergy Mild Verified 02/10/25 07:33 Review of Systems Status of ROS: Reports: 10 or more systems reviewed and unremarkable except as noted in History and below Narrative: Constitutional: No fevers, no weight gain or loss. Eyes: No discharge. No vision changes. HENT: No congestion, no sore throat, no ear pain. Cardiovascular: No chest pain, no palpitations. Respiratory: No shortness of breath, no wheezes, no cough. Gastrointestinal: No abdominal pain, no vomiting, no diarrhea. Occasional nausea. Genitourinary: No dysuria, no hematuria. Musculoskeletal: Normal range of motion. Skin: No rashes, no pruritis. Neurological: No dizziness, weakness, sensory change, speech change. Endo/Heme/Allergies: No bruising or bleeding. No polydipsia. Pysch: no suicidality, no anxiety, no insomnia. All other systems reviewed and are negative. [facility] Medical History (Updated 02/10/25 @ 09:57 by Griffin Fox MD) Asthma ?J45.909 - Unspecified asthma, uncomplicated (ICD-10) Migraines ?G43.909 - Migraine, unspecified, not intractable, without status migrainosus (ICD-10) Moderate dysplasia of cervix (PATO II) ?N87.1 - Moderate cervical dysplasia (ICD-10) Human papillomavirus (HPV) DNA detected in cervical specimen ?R87.89 - Other abnormal findings in specimens from female genital organs (ICD-10) Vacuum-assisted vaginal delivery ?Z37.9 - Outcome of delivery, unspecified (ICD-10) Cervical dysplasia ?N87.9 - Dysplasia of cervix uteri, unspecified (ICD-10) LGSIL on Pap smear of cervix ?R87.612 - Low grade squamous intraepithelial lesion on cytologic smear of cervix (LGSIL) (ICD-10) Miscarriage ?O03.9 - Complete or unspecified spontaneous without complication (ICD-10) History of abnormal cervical Pap smear ?Z87.42 - Personal history of other diseases of the female genital tract (ICD-10) Surgical History History of dilation and curettage ?Z98.890 - Other specified postprocedural states (ICD-10) History of colposcopy ?Z98.890 - Other specified postprocedural states (ICD-10) Family History (Updated 04/15/24 @ 10:50 by Taylor Rosado CNM) Father Heart disease Bladder cancer Social History (Updated 02/03/25 @ 13:56 by Cherelle Pryor MA) What is your current living situation?: I presently have a place to live Problems where you live: no known problems How hard is it for you to pay for the very basics like food, housing, medical care, and heating: not very hard In the past 12 mos, have been you worried that your food would run out before you had money to buy more?: never true In the past 12 mos, the food you bought just didn't last and you didn't have money to buy more?: never true Smoking Status: Never smoker Within the last year, have you been humiliated or emotionally abused in other ways by your partner or ex-partner: no Within the last year, have you been afraid of your partner or ex-partner: no Within the last year, have you been raped or forced to have any kind of sexual activity by your partner or ex-partner: no Within the last year, have you been kicked, hit, slapped, or otherwise physically hurt by your partner or ex-partner: no HARK total score: 0 How often does anyone, including family, friends and others, physically hurt you: never How often does anyone, including family, friends and others, insult or talk down to you: never How often does anyone, including family, friends and others, threaten you with harm: never How often does anyone, including family, friends and others, scream or curse at you: never Exam Narrative: Exam Narrative: Constitutional: Well-developed, well-nourished, no acute distress. HEENT: Normocephalic, atraumatic. Oropharynx appears normal without erythema or exudate. Tympanic membranes are normal bilaterally. Neck: Normal range of motion. Nontender. Supple. Heart: Regular. No murmurs. Normal rate. Intact distal pulses. Lungs: Clear to auscultation. No chest discomfort. No wheezes, rhonchi, or rales. Abdomen: Normal bowel sounds. Nontender. No rebound tenderness. Genitalia: Deferred. Back: No midline tenderness. Normal range of motion. Extremities: Normal range of motion. No injury. Skin: Intact. No rash. Warm. No erythema or pallor. Neurologic: No altered sensation. No weakness. Alert and oriented. Psychiatric: No suicidality. No anxiety or depression. No insomnia. Nursing notes and vitals signs are reviewed. Const: Vital Signs, click to edit/add: Vital Signs - 24 hr 02/10/25 07:21 Temperature 97.8 F Pulse Rate [Pulse Oximeter] 100 Respiratory Rate 16 Blood Pressure [Ri ght Upper Arm] 111/78 Pulse Oximetry 97 Oxygen Delivery Me thod Room Air Course Vital Signs Vital signs: Initial Vital Signs Temperature 97.8 F 02/10/25 07:21 Temperature Source Temporal Artery Scan 02/10/25 07:21 Pulse Rate 100 02/10/25 07:21 Respiratory Rate 16 02/10/25 07:21 Blood Pressure 111/78 02/10/25 07:21 Blood Pressure Mean 89 02/10/25 07:21 Blood Pressure Position Sitting 02/10/25 07:21 Pulse Oximetry 97 02/10/25 07:21 Oxygen Delivery Method Room Air 02/10/25 07:21 Vital Signs Temperature 97.8 F 02/10/25 07:21 Pulse Rate 100 02/10/25 07:21 Respiratory Rate 16 02/10/25 07:21 Blood Pressure 111/78 02/10/25 07:21 Pulse Oximetry 97 02/10/25 07:21 Oxygen Delivery Method Room Air 02/10/25 07:21 Temperature 97.8 F 02/10/25 07:21 Pulse Rate 100 02/10/25 07:21 Respiratory Rate 16 02/10/25 07:21 Blood Pressure 111/78 02/10/25 07:21 Pulse Oximetry 97 02/10/25 07:21 Oxygen Delivery Method Room Air 02/10/25 07:21 Medications Administered Medications: Discontinued Medications Generic Name Dose Route Start Last Admin Trade Name Reginoq PRN Reason Stop Dose Admin Diphenhydramine HCl 25 mg 02/10/25 08:26 02/10/25 08:49 Diphenhydramine 50 Mg/Ml Inj IVP 02/10/25 08:27 25 mg ONCE ONE Administration Sodium Chloride 1,000 mls @ 1,000 mls/hr 02/10/25 08:30 02/10/25 08:48 0.9 % Sodium Chloride 1000 Ml IV 02/10/25 09:29 1,000 mls/hr .Q1H SHIRLEY Administration Ketorolac Tromethamine 15 mg 02/10/25 08:26 02/10/25 08:50 Ketorolac 30 Mg/Ml Inj IVP 02/10/25 08:27 15 mg ONCE ONE Administration Ondansetron HCl 4 mg 02/10/25 08:26 02/10/25 08:49 Ondansetron 2 Mg/Ml Inj IVP 02/10/25 08:27 4 mg ONCE ONE Administration MDM - Headache MDM Narrative Medical decision making narrative: This patient comes in with headache as described above. Her vital signs and exam are otherwise normal. An IV was established where she received a L of normal saline, Zofran 4 mg, Toradol 15 mg, and Benadryl 25 mg. This brought relief to her symptoms. I did use bedside ultrasound to evaluate her . This was also reassuring to the patient. She is okay to be discharged home. I did provide a prescription for Zofran. Lab Data Labs: Lab Results 02/10/25 Range/Units 08:41 SARS-CoV-2 (PCR) Negative SARS-CoV-2 (Negative) Influenza Type A (PCR) Negative PCR FLU A (Negative) Influenza Type B (PCR) Negative PCR FLU B (Negative) RSV (PCR) Negative PCR RSV (Negative) Discharge Plan Discharge Clinical Impression: Monochorionic diamniotic twin gestation Qualifiers: Weeks of gestation: 37 weeks Qualified Code(s): Z3A.37 - 37 weeks gestation of Patient Disposition: Home, Self-Care Condition: Improved Additional Instructions: Use Zofran as needed and directed for nausea symptoms. Use are other [id number] medicines also as needed and directed. Follow up with MD return if worsening. Prescriptions: New ondansetron 4 mg tablet,disintegrating 4 mg PO Q6H Qty: 20 0RF No Action DHA 200 mg capsule 200 mg PO DAILY calcium 500 mg tablet 1,000 mg PO DAILY zinc 10 mg tablet 30 mg PO DAILY Follow Up/Referrals: Provider,Not a Local [Primary Care Provider, Family Practice] Stand Alone Forms: MyHealth Info Instructions Procedures POC Ultrasound Abdomen Limited Anatomical areas examined: Twin gestation Indications: Headache Description/ Findings: Twin gestation with both fetus is showing normal anatomy and cardiac activity. Impression: Normal twin gestation.
--- OUTSIDE RECORDS SUMMARY | 2025-02-10 08:34 | XMS_ITS | Encounter Summary ---
Author Organization [place] Address [address] [place] [address] Care Team Providers Care Parachute Line Tier Name Role Phone Gavin Lori Arias NP Unavailable [phone] No Ref-Primary, Physician Primary Care Provider Jessica Farmer MD Unavailable Encounter Details Date Type Department Care Team (Late st Contact Info) Description 02/03/2025 Medical Correspondence [facility] Information Management [address] [facility] [address] [place] [address] Scan, Non-Provider Social History Tobacco Use Types Packs/Day Years [...] Sex Assigned at Female 06/01/2022 11:23 AM FOAM CASTER Legal Sex Female 3:40 AM FOAM CASTER Gender Identity Female 09/29/2020 7:32 PM CDT Sexual Orientation Straight 09/29/2020 7: 32 PM CDT documented as of this encounter Plan of Treatment Not on file documented as of this encounter Visit Diagnoses Not on filedocumented in this encounter Additional Health Concerns Assessment Noted Time PHQ-9 Depression Total Score: 2 10/02/19 1:36 PM CDT documented as of this encounter Care Teams Parachute Line Tier Relationship Specialty Start Date End Date No Ref-Primary, Physician PCP - General 06/30/23 Lori Alonso NP [facility] [address] [place], [place] [id number] Nurse Practitioner Nurse Practitioner Psych/Mental Health 12/22/16 Jessica Farmer MD [address] [place], [place] [id number] Assigned PCP 04/05/24 documented as of this encounter
--- OUTSIDE RECORDS SUMMARY | 2025-02-10 08:34 | XMS_ITS | Encounter Summary ---
Author Organization [place] Address [address] [facility] [place] [address] Care Team Providers Care Pizza Baker Name Role Phone Gavin Lori Arias NP Unavailable [phone] No Ref-Primary, Physician Primary Care Provider Jessica Farmer MD Unavailable Encounter Details Date Type Department Care Team (Late st Contact Info) Description 02/09/2025 Medical Correspondence [facility] Health Information Management [address] [facility] [address] [place] [address] Scan, Non-Provider Social History Tobacco Use Types [...] Sex Assigned at Female 06/01/2022 11:23 AM TOOL SPECIALIST Legal Sex Female 3:40 AM TOOL SPECIALIST Gender Identity Female 09/29/2020 7:32 PM CDT Sexual Orientation Straight 09/29/2020 7: 32 PM CDT documented as of this encounter Plan of Treatment Not on file documented as of this encounter Visit Diagnoses Not on filedocumented in this encounter Additional Health Concerns Assessment Noted Time PHQ-9 Depression Total Score: 2 10/02/19 1:36 PM CDT documented as of this encounter Care Teams Pizza Baker Relationship Specialty Start Date End Date No Ref-Primary, Physician PCP - General 06/30/23 Lori Alonso NP [facility] [address] [place], [place] [id number] Nurse Practitioner Nurse Practitioner Psych/Mental Health 12/22/16 Jessica Farmer MD [address] [place], [place] [id number] Assigned PCP 04/05/24 documented as of this encounter
[2025-02-10] MEDS: ONDANSETRON 2 MG/ML inj 4 MG IVP (08:49)
[2025-02-10 09:22] LABS: PCR FLU A Negative PCR FLU A (Negative); PCR FLU B Negative PCR FLU B (Negative); PCR RSV Negative PCR RSV (Negative); SARS PCR* Negative SARS-CoV-2 (Negative)
== END 2025-02-10 10:08 | disposition home or self-care (01) ==
PROVIDERS: Emergency Provider Emergency Medicine Emergency Medical Services
DX: O30.033 Twin pregnancy, monochorionic/diamniotic, third trimester (principal); R51.9 Headache, unspecified; Z3A.37 37 weeks gestation of pregnancy
CPT/HCPCS: 76705; 87631; 96374; 96375; 99284; J1200; J1885; J2405; J7030

== ENCOUNTER 2025-04-29 15:00 | Outpatient (CLI) | payer BC, SELFPAY | END 2025-04-29 15:01 | disposition home or self-care (01) | PROVIDERS: Visit Provider Obstetrics & Gynecology | DX: O30.033 Twin pregnancy, monochorionic/diamniotic, third trimester (principal) | CPT/HCPCS: 83540; 83550; 84443 ==